=== PATIENT | female | born 1960 | race Caucasian/White ===

== ENCOUNTER 2016-03-27 15:14 | Emergency (ER) | payer MEDICARE, MEDICAID ==
[~2016-03-27 15:14] MED LIST: ASPI81TA82 PO; BACL20TA PO; CARV3.125 PO; FENT50DI TD; FLINT2; GABA300C3 PO; LASI20TA PO; MELO15TA2 PO; PERC7.5T13 PO; PLAV75TA PO; POTA-243 PO; VITA200017 PO
[2016-03-27 16:38] VITALS: BP 110/74; PULSE 94; RESP 18; TEMP 98.7; O2SAT 94
--- NOTE | 2016-03-27 16:38 | PD ---
HPI Chief Complaint: right leg pain Time Seen by Provider: 16:20 Travel History International Travel<30 days: No Contact w/Intl Traveler<30days: No Traveled to known affect area: No History of Present Illness HPI This is a 55-year-old female with history of spina bifida who primarily ambulates using a wheelchair with inability to ambulate on her own. She presents via EMS for evaluation after fall. The patient reports that 2 weeks ago her fianc was transferring her from the bedside commode to the bed when she slipped and fell, landing on her right leg. Since then she has had pain in her whole leg which she cannot localized to one area of the leg. The pain is aching and constant and worse with palpation or movement. She has been using leftover Percocet as well as Aleve, icy hot and heating pads but the pain has persisted which prompted evaluation. Denies any numbness or tingling. Denies any head or neck or back injury. Denies any chest pain or abdominal pain. She has no other complaints at this time. PFSH Past Medical History Cancer: No Cardiovascular Problems: No Diminished Hearing: No Endocrine: No Genitourinary: No Musculoskeletal: Yes (SPINA BIFIDA) Neurologic: Yes (CMT- FORM OF NEUROPATHY) Psychiatric: No Reproductive: No Respiratory: No Immunizations Current: No Past Surgical History Cardiac Surgery: No Ear Surgery: No Endocrine Surgery: No Eye Surgery: No Genitourinary Surgery: No Gynecologic Surgery: No Joint Replacement: Yes (TOTAL RIGHT HIP 2013) Oral Surgery: No Thoracic Surgery: No Other Surgery: Yes Social History Alcohol Use: Yes (OCC) Tobacco Use: Yes (1/2 PPD) Substance Use: No Allergies-Medications (Allergen,Severity, Reaction): Coded Allergies: No Known Allergies (Verified , 10/11/13) Reported Meds & Prescriptions Reported Meds & Active Scripts Active Lortab (Hydrocodone-Acetaminophen) 5-325 Mg Tab 1 Tab PO Q6H PRN Mobic (Meloxicam) 15 Mg Tab 15 Mg PO DAILY PRN Reported Vitamin D3 Super Strength (Cholecalciferol) 2,000 Unit Cap 2,000 Unit PO DAILY Flintstones Complete (Iron/Multivit/Minerals) 1 Tab Chew Lasix (Furosemide) 20 Mg Tab 20 Mg PO DAILY 30 Days Aspir-81 (Aspirin) 81 Mg Tab 81 Mg PO DAILY Coreg 3.125 mg (Carvedilol) 3.125 Mg Tab 3.125 Mg PO BID K-Dur (Potassium Chloride) 10 Meq Tabcr 10 Meq PO DAILY Plavix (Clopidogrel Bisulfate) 75 Mg Tab 75 Mg PO DAILY Lioresal 20 Mg Tab (Baclofen) 20 Mg Tab 20 Mg PO TID Fentanyl 50 Mcg/Hr patch (Fentanyl) 50 Mcg/Hr Dis 50 Mcg TD Q3D Percocet 7.5-325 mg (Oxycodone-Acetaminophen 7.5-325 mg) 1 Tab 1 Tab PO Q6H PRN FOR PAIN Vitamin D3 Super Strength (Cholecalciferol) 2,000 Unit Tab 2,000 Unit PO DAILY Gabapentin 300 Mg Cap 400 Mg PO TID Review of Systems Except as stated in HPI: all other systems reviewed are Neg Physical Exam Narrative GENERAL: Well-developed well-nourished female in no acute distress SKIN: Warm and dry. There is some bruising on the anterior right barrios. HEAD: Atraumatic. Normocephalic. EYES: Pupils equal and round. No scleral icterus. No injection or drainage. ENT: No nasal bleeding or discharge. Mucous membranes pink and moist. NECK: Trachea midline. No JVD. CARDIOVASCULAR: Regular rate and rhythm. No murmur appreciated. RESPIRATORY: No accessory muscle use. Clear to auscultation. Breath sounds equal bilaterally. GASTROINTESTINAL: Abdomen soft, non-tender, nondistended. Hepatic and splenic margins not palpable. MUSCULOSKELETAL: The patient has generalized tenderness to palpation of the right thigh, right knee, right lower leg and right foot. The compartments of the calves bilaterally are somewhat firm but there is no additional firmness or fusiform swelling of the right leg in comparison to the left. She has 2 out of 5 muscle strength in lower extremities bilaterally. The patient has pain with any passive range of motion activities utilizing the right leg. NEUROLOGICAL: Awake and alert. No obvious cranial nerve deficits. Motor grossly within normal limits. Normal speech. Data Data Last Documented VS Vital Signs Date Time Temp Pulse Resp B/P Pulse Ox O2 Delivery O2 Flow Rate FiO2 03/27/16 19:19 88 18 118/70 97 03/27/16 16:40 Room Air 03/27/16 16:38 98.7 Orders Tibia/Fibula (Ap/Lat) (03/27/16 ) Femur (Ap & Lat/2vws) (03/27/16 ) Foot, Limited (2vws) (03/27/16 ) Iv Access Insert/Monitor (03/27/16 17:09) Morphine Inj (Morphine Inj) (03/27/16 17:15) Ondansetron Inj (Zofran Inj) (03/27/16 17:15) Splint Or Brace Apply/Monitor (03/27/16 17:56) Fiberglass Long Leg Splint Ad (03/27/16 ) Acetamin-Hydrocod 325-5 Mg (Crosby 5-325 (03/27/16 21:15) MDM Medical Decision Making Medical Screen Exam Complete: Yes Emergency Medical Condition: Yes Medical Record Reviewed: Yes Differential Diagnosis Right leg fracture, contusion, strain, sprain, compartment syndrome Narrative Course 55-year-old female with history of spina bifida resents for evaluation of persistent right leg pain after a fall 2 weeks ago. On examination she has generalized tenderness to palpation of her right leg with no obvious bony deformity, she does have some bruising to the medial right lower leg. The compartments of the legs bilaterally are equal in size and equal and firmness. Plan is for right leg femur, tibia-fibula, foot x-ray imaging. X-ray imaging reveals Severe osteopenia with mildly comminuted fractures of the proximal and distal tibia and distal fibula with mild angular deformities. I discussed the injuries with the orthopedic surgeon production control specialist Dr. Martinez who would like nonoperative treatment. He recommends a long leg splint, nonweightbearing and right leg and outpatient follow-up in his office in 2 weeks. Given the patient's already limited mobilization due to her chronic medical conditions, I discussed with the briefcase sewer and I put in a [id number] to have physical therapy, occupational therapy and senior care, evaluate the patient at home. Diagnosis Primary Impression: Fracture of right tibia and fibula Qualified Code: S82.201A - Fracture of right tibia and fibula, closed, initial encounter Referrals: Sy Martinez Jr., MD Additional Instructions: Nonweightbearing right leg. Do not remove the splint. Pain medication as needed. Follow-up with orthopedic physician Dr. Martinez in 2 weeks, call his office to make an appointment. Return for any emergent medical conditions. Med/Other Pt SpecificInfo: Prescription(s) given, Orthopedic Instructions Scripts Hydrocodone-Acetaminophen (Lortab)5-325 Mg Tab1 Tab PO Q6H PRN (PAIN) #20 TAB Ref 0 Prov:Katharine Banks MD 03/27/16 Disposition: 01 DISCHARGE HOME Condition: Stable Carlito Brown Mar 27, 2016 16:38
[2016-03-27] MEDS ORDERED: ONDANSETRON HCL 4 MG/2 ML VIAL IV PUSH ONE (17:15)
[2016-03-27] MEDS ORDERED: MORPHINE SULFATE 4 MG/ML INJ IV PUSH ONE (17:15)
--- NOTE | 2016-03-27 17:15 | RADRPT ---
EXAM DATE/TIME: 03/27/2016 16:40 [facility] COMPARISON: No previous studies available for comparison. INDICATIONS : Right tibia pain, fell MEDICAL HISTORY : None. SURGICAL HISTORY : None. ENCOUNTER: Initial ACUITY: 2 weeks PAIN SCORE: 10/10 LOCATION: Right Tibia FINDINGS: The bones are severely osteopenic. There is a mildly displaced fracture of the proximal tibial shaft and the distal tibial shaft as well, extending intra-articular into the ankle joint. There is also a mildly displaced distal fibular fracture. CONCLUSION: 1. Severe osteopenia with mildly comminuted fractures of the proximal and distal tibia and distal fib dave with mild angular deformities. Fitz Melvin MD on March 27, 2016 at 17:12 Board Certified Radiologist. This report was verified electronically.
--- NOTE | 2016-03-27 17:18 | RADRPT ---
EXAM DATE/TIME: 03/27/2016 16:43 [facility] COMPARISON: No previous studies available for comparison. INDICATIONS : Right femur pain, fell MEDICAL HISTORY : None. SURGICAL HISTORY : None. ENCOUNTER: Initial ACUITY: 2 weeks PAIN SCORE: 10/10 LOCATION: Right Femur FINDINGS: Two view examination of the right femur demonstrates postoperative right hip replacement. No acute fr acture identified. Bones are osteopenic. There are femoral artery vascular calcifications noted. CONCLUSION: 1. Postoperative right hip replacement. No acute fracture identified in the right femur. Fitz Melvin MD on March 27, 2016 at 17:14 Board Certified Radiologist. This report was verified electronically.
--- NOTE | 2016-03-27 17:23 | RADRPT ---
EXAM DATE/TIME: 03/27/2016 16:52 [facility] COMPARISON: No previous studies available for comparison. INDICATIONS : Right foot pain, fell MEDICAL HISTORY : None. SURGICAL HISTORY : None. ENCOUNTER: Initial ACUITY: 2 weeks PAIN SCORE: 10/10 LOCATION: Right Foot FINDINGS: Two view examination of the right foot demonstrates severe osseous demineralization throughout. This may be secondary to disuse. Mild hallux is deformity of the first ray. Slightly comminuted and angula sabina fracture of the distal tibial metadiaphysis with a similar fracture through the distal fibula CONCLUSION: 1. Severe osseous demineralization throughout the visualized lower leg and foot. 2. Fractures of the distal tibia and fibula are only partially evaluated on the current exam. Recomme nd dedicated views of the ankle for further characterization. 3. Mild hallux valgus deformity of the first ray. Despite severe osseous demineralization, I do not s ee an obvious intrinsic fracture of the foot itself. Lambert Corral MD on March 27, 2016 at 17:19 Board Certified Radiologist. This report was verified electronically.
--- NOTE | 2016-03-27 18:11 | HHI.FF ---
Face to Face Verification Diagnosis: (1) Fracture of right tibia and fibula Physical Therapy Order: Evaluate and Treat, Improve ambulation, Strength and gait training Occupational Therapy Order: Improve ADL Home Health Nursing Order: Medical education I have seen patient Yandy Reed on 03/27/16. My clinical findings support the need for the requested home health care services because: This is a 55-year-old female who is primarily wheelchair bound with a history of spina bifida, severe weakness in lower extremities. She has sustained significant fracturing to the right tibia fibula which are nonoperative but require immobilization for a significant amount of time. Ltd mobility - disease progression Limited ability to care for self High risk of falls I certify that my clinical findings support that this patient is homebound because: This is a wheelchair-bound patient who sustained fractures to the right tibia and fibula which will require immobilization for a significant amount of time. Unsteady gait/balance Unsafe to leave home unassisted Carlito Brown Mar 27, 2016 18:11
[2016-03-27] MEDS ORDERED: HYDR-3533 PO (18:13)
[2016-03-27 19:19] VITALS: BP 118/70
[2016-03-27] MEDS ORDERED: ACETAMINOPHEN/HYDROcodone 325 MG/5 MG TAB PO ONE (21:15)
[2016-03-29] MEDS ORDERED: BACL20TA PO (14:16)
[2016-03-29] MEDS ORDERED: CARV3.12 PO (14:16)
[2016-03-29] MEDS ORDERED: CLOP75TA PO (14:16)
[2016-03-29] MEDS ORDERED: POTA10CA PO (14:16)
[2016-03-29] MEDS ORDERED: ASPI81CH CHEW (14:16)
[2016-03-29] MEDS ORDERED: PRAV10TA PO (14:16)
[2016-03-29] MEDS ORDERED: RANI300T PO (14:16)
[2016-03-29] MEDS ORDERED: OXYC1TAB36 PO (14:16)
== END 2016-03-28 01:33 | disposition home or self-care (01) ==
LOC: NEDAMB 15:14 → NEPB 03-28 01:33
DX: S82.101A Unspecified fracture of upper end of right tibia, initial encounter for closed fracture (principal); S82.301A Unspecified fracture of lower end of right tibia, initial encounter for closed fracture; S82.401A Unspecified fracture of shaft of right fibula, initial encounter for closed fracture; M85.80 Other specified disorders of bone density and structure, unspecified site; F17.210 Nicotine dependence, cigarettes, uncomplicated; Q05.9 Spina bifida, unspecified; W01.0XXA Fall on same level from slipping, tripping and stumbling without subsequent striking against object, initial encounter; Y92.002 Bathroom of unspecified non-institutional (private) residence as the place of occurrence of the external cause; Z99.3 Dependence on wheelchair
CPT/HCPCS: 29505; 73552; 73590; 73620; 96374; 96375; 99284; J2270; J2405

== ENCOUNTER 2016-03-29 13:58 | Inpatient (IN) | payer MEDICARE, MEDICAID ==
[2016-03-29] VITALS (7 sets, daily range): BP systolic 101–144; BP diastolic 58–84; PULSE 84–130; RESP 18–22; TEMP 97.3–98.4; O2SAT 93–97
[~2016-03-29] VITALS: Ht 157.5 cm; Wt 72.0 kg
[~2016-03-29 13:58] MED LIST changes: +HYDR-3533 PO
[2016-03-29] MEDS ORDERED: POTA10CA PO (14:16)
[2016-03-29] MEDS ORDERED: RANI300T PO (14:16)
[2016-03-29] MEDS ORDERED: BACL20TA PO (14:16)
[2016-03-29] MEDS ORDERED: PRAV10TA PO (14:16)
[2016-03-29] MEDS ORDERED: CLOP75TA PO (14:16)
[2016-03-29] MEDS ORDERED: CARV3.12 PO (14:16)
[2016-03-29] MEDS ORDERED: OXYC1TAB36 PO (14:16)
[2016-03-29] MEDS ORDERED: ASPI81CH CHEW (14:16)
[2016-03-29] MEDS ORDERED: ONDANSETRON HCL 4 MG/2 ML VIAL ONE (14:23)
[2016-03-29] MEDS ORDERED: MORPHINE SULFATE 4 MG/ML INJ IV PUSH ONE (14:45)
[2016-03-29] MEDS ORDERED: ONDANSETRON HCL 4 MG/2 ML VIAL IVP ONE (14:45)
[2016-03-29] MEDS ORDERED: SODIUM CHLORID 0.9% 500 ML INJ 500 ML IV ONE ×2 (14:45→17:00)
--- NOTE | 2016-03-29 14:45 | PD ---
HPI Chief Complaint: Pain: Acute or Chronic Time Seen by Provider: 14:30 Travel History International Travel<30 days: No Contact w/Intl Traveler<30days: No Traveled to known affect area: No History of Present Illness HPI Patient is a 55-year-old female with history of spina bifida, chronic bilateral lower extremity weakness and neuropathy who is wheelchair bound presenting with chief complaint "I can't care for myself". This is secondary to a right proximal and distal tibia and distal fibula fracture. She was seen here for the fracture 2 days prior. Orthopedist was consult at stated this was not operative, patient was placed in a splint. She has not been able to achieve analgesia with home Percocet and hydrocodone and states that she is only able to transfer with her boyfriend by hanging onto his neck to transfer to the toilet and shower. Due to the pain she has not been able to do this. She states that all day yesterday she laid in bed and urinated on herself. Stay home health came out and per the patient told her that she needed to be placed in the 24-hour care. Patient states that she has been limiting her fluids and has nausea and abdominal distention. Last bowel movement was approximately one week ago. She has been passing gas but has not done so yet today. She denies chest pain or shortness of breath or pedal edema. She denies fever and chills. PFSH Past Medical History Cancer: No Cardiovascular Problems: Yes (OK ) Diminished Hearing: No Endocrine: No Gastrointestinal Disorders: No Genitourinary: No Implanted Vascular Access Dvce: No Musculoskeletal: Yes (SPINA BIFIDA) Neurologic: Yes (CMT- FORM OF NEUROPATHY) Psychiatric: No Reproductive: No Respiratory: No Immunizations Current: No Influenza Vaccination: Yes Past Surgical History Cardiac Surgery: No Ear Surgery: No Endocrine Surgery: No Eye Surgery: No Genitourinary Surgery: No Gynecologic Surgery: No Joint Replacement: Yes (TOTAL RIGHT HIP 2013) Oral Surgery: No Thoracic Surgery: No Other Surgery: Yes Social History Alcohol Use: Yes (OCC) Tobacco Use: Yes (1 PPD) Substance Use: No Allergies-Medications (Allergen,Severity, Reaction): Coded Allergies: No Known Allergies (Verified , 03/29/16) Reported Meds & Prescriptions Reported Meds & Active Scripts Active Reported Ranitidine (Ranitidine HCl) 300 Mg Tab 300 Mg PO DAILY Aspirin 81 Mg Chew 81 Mg CHEW DAILY Potassium Chloride ER (Potassium Chloride) 10 Meq Cap 10 Meq PO DAILY Baclofen 20 Mg Tab 20 Mg PO TID Carvedilol 3.125 Mg Tab 3.125 Mg PO BID Oxycodone-Acetaminophen 10-325 mg Tab 1 Tab PO Q6H PRN Clopidogrel (Clopidogrel Bisulfate) 75 Mg Tab 75 Mg PO DAILY Pravastatin 10 Mg Tab 10 Mg PO DAILY Review of Systems Except as stated in HPI: all other systems reviewed are Neg Physical Exam Narrative GENERAL: Well-developed and well-nourished adult female in no acute distress. SKIN: Patient has candidal skin changes in the bilateral breasts and in groin slight amount of clear to white odiferous discharge. No signs of cellulitis or abscess. There is some reddened skin over the sacrum with small break in the epidermis the left without signs of cellulitis or abscess. Warm and dry. Slightly decreased turgor without tenting. HEAD: Normocephalic and atraumatic. EYES: PERRL bilaterally, 5mm. EOMI bilaterally. No injection or icterus present. No proptosis. Lids without edema or erythema. ENT:Buccal mucosa pink and slightly dry. Oropharynx free of erythema, tonsillar hypertrophy, masses, swelling, asymmetry and exudates. Uvula midline and airway patent. NECK: Supple, no midline tenderness, crepitus or step-offs. Trachea midline, no JVD. No cervical or facial lymphadenopathy. CARDIOVASCULAR: Tachycardic, rate of 104, with regular rhythm without murmurs, rubs, clicks or gallops. Left dorsalis pedis pulse 2+. Capillary refill of all toes of the right lower extremity is less than 2 seconds. Trace pedal edema of the left lower extremity per patient which is chronic, negative Homans sign. RESPIRATORY: Coarse breath sounds diffusely without wheezing, rhonchi or rales. No distress or use of accessory muscles. GASTROINTESTINAL: Distended and firm, non-tender without rebound or guarding. Hypoactive bowel sounds all 4 quadrants. No masses or organomegaly present. MUSCULOSKELETAL: Right lower extremity is in a posterior long-leg splint. Extremities without clubbing or cyanosis. No obvious deformities. NEUROLOGIC: CN II-XII grossly intact. Awake and alert. Motor grossly within normal limits. Sensation intact to the distal tip of all toes of right foot. Normal speech. PSYCHIATRIC: Appropriate mood and affect; insight and judgment normal. Data Data Last Documented VS Vital Signs Date Time Temp Pulse Resp B/P Pulse Ox O2 Delivery O2 Flow Rate FiO2 03/29/16 16:25 104 20 135/75 94 Room Air 03/29/16 14:05 98.4 Orders Ondansetron Inj (Zofran Inj) (03/29/16 14:23) Complete Blood Count With Diff (03/29/16 14:33) Comprehensive Metabolic Panel (03/29/16 14:33) Lipase (03/29/16 14:33) Lactic Acid (03/29/16 14:33) Prothrombin Time / Inr (Pt) (03/29/16 14:33) Act Partial Throm Time (Ptt) (03/29/16 14:33) Urinalysis - C+S If Indicated (03/29/16 14:33) Ct Abd/Pel W Iv Contrast(Rout) (03/29/16 14:33) Iv Access Insert/Monitor (03/29/16 14:33) Ecg Monitoring (03/29/16 14:33) Oximetry (03/29/16 14:33) Ondansetron Inj (Zofran Inj) (03/29/16 14:45) Electrocardiogram (03/29/16 14:33) Chest, Single Ap (03/29/16 14:33) Ckmb (Isoenzyme) Profile (03/29/16 14:33) Troponin I (03/29/16 14:33) Sodium Chlorid 0.9% 500 Ml Inj (Ns 500 M (03/29/16 14:45) Morphine Inj (Morphine Inj) (03/29/16 14:45) Morphine Inj (Morphine Inj) (03/29/16 15:45) Urine Culture (03/29/16 15:43) ^ Skin Protective Barrier (03/29/16 16:13) Ceftriaxone Inj (Rocephin Inj) (03/29/16 16:30) Nystatin Oint (Mycostatin Oint) (03/29/16 16:30) Sodium Chlorid 0.9% 500 Ml Inj (Ns 500 M (03/29/16 17:00) Albuterol-Ipratropium Neb (Duoneb Neb) (03/29/16 17:00) Iohexol 350 Inj (Omnipaque 350 Inj) (03/29/16 16:50) Urinary Catheter Management SHARITA.Q8H (03/29/16 17:21) Piperacil-Tazo 4.5 Gm Premix (Zosyn 4.5 (03/29/16 17:30) Vancomycin Inj (Vancomycin Inj) (03/29/16 17:30) Sodium Chlor 0.9% 1000 Ml Inj (Ns 1000 M (03/29/16 17:30) Sodium Chlor 0.9% 1000 Ml Inj (Ns 1000 M (03/29/16 17:30) Vital Signs (Adult) Q4H (03/29/16 17:40) Neuro Checks Q4H (03/29/16 17:40) Activity Bed Rest With Brp (03/29/16 17:40) Diet Heart Healthy (03/29/16 Dinner) Sodium Chlor 0.9% 1000 Ml Inj (Ns 1000 M (03/29/16 17:40) Sodium Chloride 0.9% Flush (Ns Flush) (03/29/16 17:45) Sodium Chloride 0.9% Flush (Ns Flush) (03/29/16 21:00) Acetaminophen (Tylenol) (03/29/16 17:45) Ondansetron Inj (Zofran Inj) (03/29/16 17:45) Basic Metabolic Panel (Bmp) (03/30/16 06:00) Complete Blood Count With Diff (03/30/16 06:00) Pt Request For Service (03/29/16 17:40) Naloxone Inj (Narcan Inj) (03/29/16 17:45) Heparin Inj (Heparin Inj) (03/29/16 21:00) Piperacil-Tazo 3.375 Gm Premix (Zosyn 3. (03/30/16 00:00) Lactic Acid (03/30/16 06:00) Admit Order (Ed Use Only) (03/29/16 17:52) Labs Laboratory Tests Test 03/29/16 03/29/16 15:23 15:43 White Blood Count 10.8 TH/MM3 Red Blood Count 3.85 MIL/MM3 Hemoglobin 13.5 GM/DL Hematocrit 39.6 % Mean Corpuscular Volume 102.9 FL Mean Corpuscular Hemoglobin 35.2 PG Mean Corpuscular Hemoglobin 34.2 % Concent Red Cell Distribution Width 15.7 % Platelet Count 255 TH/MM3 Mean Platelet Volume 7.5 FL Neutrophils (%) (Auto) 74.5 % Lymphocytes (%) (Auto) 16.3 % Monocytes (%) (Auto) 8.4 % Eosinophils (%) (Auto) 0.4 % Basophils (%) (Auto) 0.4 % Neutrophils # (Auto) 8.1 TH/MM3 Lymphocytes # (Auto) 1.8 TH/MM3 Monocytes # (Auto) 0.9 TH/MM3 Eosinophils # (Auto) 0.0 TH/MM3 Basophils # (Auto) 0.0 TH/MM3 CBC Comment DIFF FINAL Differential Comment Prothrombin Time 12.2 SEC Prothromb Time International 1.1 RATIO Ratio Activated Partial 26.0 SEC Thromboplast Time Sodium Level 132 MEQ/L Potassium Level 4.1 MEQ/L Chloride Level 94 MEQ/L Carbon Dioxide Level 26.3 MEQ/L Anion Gap 12 MEQ/L Blood Urea Nitrogen 3 MG/DL Creatinine 0.40 MG/DL Estimat Glomerular Filtration 165 ML/MIN Rate Random Glucose 94 MG/DL Lactic Acid Level 3.2 mmol/L Calcium Level 8.2 MG/DL Total Bilirubin 0.9 MG/DL Aspartate Amino Transf 94 U/L (AST/SGOT) Alanine Aminotransferase 45 U/L (ALT/SGPT) Alkaline Phosphatase 163 U/L Total Creatine Kinase 23 U/L Troponin I LESS THAN 0.02 NG/ML Total Protein 6.6 GM/DL Albumin 3.1 GM/DL Lipase 104 U/L Urine Color YELLOW Urine Turbidity CLOUDY Urine pH 6.5 Urine Specific Moore 1.012 Urine Protein 30 mg/dL Urine Glucose (UA) NEG mg/dL Urine Ketones NEG mg/dL Urine Occult Blood MOD Urine Nitrite NEG Urine Bilirubin NEG Urine Urobilinogen 2.0 MG/DL Urine Leukocyte Esterase LARGE Urine RBC 3 /hpf Urine WBC 126 /hpf Urine WBC Clumps FEW Urine Squamous Epithelial 2 /hpf Cells Urine Amorphous Sediment RARE Urine Bacteria MANY /hpf Urine Mucus FEW /lpf Microscopic Urinalysis Comment CULTURE INDICATED MDM Medical Decision Making Medical Screen Exam Complete: Yes Emergency Medical Condition: Yes Interpretation(s) Last 24 hours Impressions Chest X-Ray 03/29/16 3633 Signed Impressions: Service Date/Time: Tuesday, March 29, 2016 14:40 - CONCLUSION: No evidence of acute cardiopulmonary disease. Dexter Worley MD Abdomen/Pelvis CT 03/29/16 1433 Signed Impressions: Service Date/Time: Tuesday, March 29, 2016 16:49 - CONCLUSION: 1. 12.5 cm uterus characteristic of a fibroid uterus with some entrapped endometrial fluid. 2. Diffuse fatty infiltration of the liver. 3. Otherwise no acute findings within the abdomen or pelvis. Mild anasarca. Previous right hip replacement. Coronary calcifications. Fitz Melvin MD Laboratory Tests Test 03/29/16 03/29/16 15:23 15:43 White Blood Count 10.8 TH/MM3 (4.0-11.0) Red Blood Count 3.85 MIL/MM3 (4.00-5.30) Hemoglobin 13.5 GM/DL (11.6-15.3) Hematocrit 39.6 % (35.0-46.0) Mean Corpuscular Volume 102.9 FL (80.0-100.0) Mean Corpuscular Hemoglobin 35.2 PG (27.0-34.0) Mean Corpuscular Hemoglobin 34.2 % Concent (32.0-36.0) Red Cell Distribution Width 15.7 % (11.6-17.2) Platelet Count 255 TH/MM3 (150-450) Mean Platelet Volume 7.5 FL (7.0-11.0) Neutrophils (%) (Auto) 74.5 % (16.0-70.0) Lymphocytes (%) (Auto) 16.3 % (9.0-44.0) Monocytes (%) (Auto) 8.4 % (0.0-8.0) Eosinophils (%) (Auto) 0.4 % (0.0-4.0) Basophils (%) (Auto) 0.4 % (0.0-2.0) Neutrophils # (Auto) 8.1 TH/MM3 (1.8-7.7) Lymphocytes # (Auto) 1.8 TH/MM3 (1.0-4.8) Monocytes # (Auto) 0.9 TH/MM3 (0-0.9) Eosinophils # (Auto) 0.0 TH/MM3 (0-0.4) Basophils # (Auto) 0.0 TH/MM3 (0-0.2) CBC Comment DIFF FINAL Differential Comment Prothrombin Time 12.2 SEC (9.8-11.6) Prothromb Time International 1.1 RATIO Ratio Activated Partial 26.0 SEC Thromboplast Time (24.3-30.1) Sodium Level 132 MEQ/L (136-145) Potassium Level 4.1 MEQ/L (3.5-5.1) Chloride Level 94 MEQ/L (98-107) Carbon Dioxide Level 26.3 MEQ/L (21.0-32.0) Anion Gap 12 MEQ/L (5-15) Blood Urea Nitrogen 3 MG/DL (7-18) Creatinine 0.40 MG/DL (0.50-1.00) Estimat Glomerular Filtration 165 ML/MIN Rate (>89) Random Glucose 94 MG/DL (74-106) Lactic Acid Level 3.2 mmol/L (0.4-2.0) Calcium Level 8.2 MG/DL (8.5-10.1) Total Bilirubin 0.9 MG/DL (0.2-1.0) Aspartate Amino Transf 94 U/L (15-37) (AST/SGOT) Alanine Aminotransferase 45 U/L (10-53) (ALT/SGPT) Alkaline Phosphatase 163 U/L (45-117) Total Creatine Kinase 23 U/L (26-192) Troponin I LESS THAN 0.02 NG/ML (0.02-0.05) Total Protein 6.6 GM/DL (6.4-8.2) Albumin 3.1 GM/DL (3.4-5.0) Lipase 104 U/L (73-393) Urine Color YELLOW (YELLW/STRAW) Urine Turbidity CLOUDY (CLEAR) Urine pH 6.5 (5.0-8.5) Urine Specific Moore 1.012 (1.002-1.035) Urine Protein 30 mg/dL (NEG-TRACE) Urine Glucose (UA) NEG mg/dL (NEG) Urine Ketones NEG mg/dL (NEG) Urine Occult Blood MOD (NEG) Urine Nitrite NEG (NEG) Urine Bilirubin NEG (NEG) Urine Urobilinogen 2.0 MG/DL (LESS THAN 2.0) Urine Leukocyte Esterase LARGE (NEG) Urine RBC 3 /hpf (0-3) Urine WBC 126 /hpf (0-5) Urine WBC Clumps FEW (NONE) Urine Squamous Epithelial 2 /hpf (0-5) Cells Urine Amorphous Sediment RARE Urine Bacteria MANY /hpf (NONE) Urine Mucus FEW /lpf (OCC) Microscopic Urinalysis Comment CULTURE INDICATED Differential Diagnosis Dehydration versus electrolyte disturbance versus acute kidney injury versus bowel obstruction versus pancreatitis versus intractable pain Narrative Course Patient is a 55-year-old female with history of spina bifida who has chronic lower extremity weakness and neuropathy presenting with chief complaint of not being able to care for herself after suffering a significant right tibia and fibula fracture 2 days prior. This was nonsurgical or orthopedist at that time the patient was placed in a splint. She is unable to care for herself and states she has been lying in her bed urinating on herself and not eating or drinking. Home health aide came to the house today and told the patient she needed to come to the ED because she cannot care for her. The patient has some nausea and abdominal distention but denies any other symptoms. She is afebrile with mild tachycardia. He is dehydrated. Given 1 L normal saline bolus. Urinalysis was a catheter specimen shows 126 wbc's with a few clumps, many bacteria, 3 rbc's and leukocyte esterase. Patient was given ceftriaxone 1 g. CBC shows a CBC 10.8 with a neutrophilia without bands. Metabolic panel shows sodium 132, BUN 3, creatinine 0.4, lipase 104, CK 23, troponin less than 0.02, albumin 3.1, calcium 8.2, AST 94, ALT 45, ALP 163. Lactic acid 3.2. Given that the patient has a UTI with borderline elevated WBCs with a neutrophilia, significant lactic acid elevation and is tachycardic to meet sepsis criteria. She was given vancomycin and Zosyn in addition an additional liter of saline was ordered. CT scan had been ordered and was pending which shows a large uterine fibroid with retaining fluid which is chronic per patient. Significant bladder distention, Gonzales was placed. Generalized anasarca was also present. Additionally patient had early pressure ulcer on the sacrum, protective dressing was applied. Evidence of intertriginous candidiasis as well, nystatin applied. Dr. Banks spoke to the admitting physician who accepted the admission. Diagnosis Primary Impression: Sepsis Qualified Code: A41.9 - Sepsis, due to unspecified organism Additional Impressions: UTI (urinary tract infection) Qualified Code: N30.00 - Acute cystitis without hematuria Fracture of right tibia and fibula Qualified Code: S82.201D - Fracture of right tibia and fibula, closed, with routine healing, subsequent encounter Pressure ulcer Qualified Code: L89.151 - Decubitus ulcer of sacral region, stage 1 Intertriginous candidiasis Admitting Information Admitting Physician Requests: Admit Condition: Stable Dexter Silva III Mar 29, 2016 14:45
--- NOTE | 2016-03-29 15:08 | RADRPT ---
EXAM DATE/TIME: 03/29/2016 14:40 [facility] COMPARISON: CHEST SINGLE AP, December 10, 2012, 16:51. INDICATIONS : Nausea, Evaluate for Free Air. MEDICAL HISTORY : Myocardial infarction. Spina Bifida. SURGICAL HISTORY : Hip Replacement, Right. ENCOUNTER: Initial ACUITY: 1 day PAIN SCORE: 0/10 LOCATION: Bilateral chest FINDINGS: A single view of the chest demonstrates the lungs to be symmetrically aerated without evidence of mas s, infiltrate or effusion. The cardiomediastinal contours are unremarkable. Osseous structures are intact. CONCLUSION: No evidence of acute cardiopulmonary disease. Dexter Worley MD on March 29, 2016 at 15:07 Board Certified Radiologist. This report was verified electronically.
[2016-03-29] MEDS ORDERED: MORPHINE SULFATE 4 MG/ML INJ IV ONE (15:45)
[2016-03-29 15:53] LABS: AUTOMATED NEUTROPHIL # 8.1 TH/MM3 (1.8-7.7); BASOPHIL % 0.4 % (0.0-2.0); EOSINOPHIL % 0.4 % (0.0-4.0); HEMATOCRIT 39.6 % (35.0-46.0); HEMO FLAGS DIFF FINAL; LYMPH % 16.3 % (9.0-44.0); LYMPHOCYTE # 1.8 TH/MM3 (1.0-4.8); MEAN CELL VOLUME 102.9 FL (80.0-100.0); MEAN CORPUSCULAR HEMOGLOBIN 35.2 PG (27.0-34.0); MEAN CORPUSCULAR HGB CONC 34.2 % (32.0-36.0); MONO % 8.4 % (0.0-8.0); NEUT % 74.5 % (16.0-70.0); PLATELET COUNT 255 TH/MM3 (150-450); RED BLOOD COUNT 3.85 MIL/MM3 (4.00-5.30); RED CELL DISTRIBUTION WIDTH 15.7 % (11.6-17.2); WHITE BLOOD COUNT 10.8 TH/MM3 (4.0-11.0)
[2016-03-29 16:01] LABS: INTERNATIONAL NORMALIZED RATIO 1.1 RATIO; PROTHROMBIN TIME - PATIENT 12.2 SEC (9.8-11.6)
[2016-03-29 16:08] LABS: BACTERIA, URINE MANY /hpf; BLOOD, URINE MOD (NEG); COMMENT (UR) CULTURE INDICATED; CULTURE IF INDICATED CULTURE INDICATED; GLUCOSE,URINE NEG (NEG); KETONE, URINE NEG (NEG); MUCUS URINE FEW /lpf (OCC); NITRITE,URINE NEG (NEG); PH, URINE 6.5 (5.0-8.5); SQUAMOUS EPITHELIAL CELL URINE 2 /hpf (0-5); URINE COLOR YELLOW (YELLW/STRAW)
[2016-03-29 16:09] LABS: ALT (GPT) 45 U/L (10-53); ANION GAP 12 MEQ/L (5-15); AST (GOT) 94 U/L (15-37); BICARBONATE 26.3 MEQ/L (21.0-32.0); BLOOD UREA NITROGEN 3 MG/DL (7-18); CHLORIDE 94 MEQ/L (98-107); GLOMERULAR FILTRATION RATE 165 ML/MIN (>89); POTASSIUM 4.1 MEQ/L (3.5-5.1); SODIUM (NA) 132 MEQ/L (136-145)
[2016-03-29 16:12] LABS: ALKALINE PHOSPHATASE 163 U/L (45-117); TOTAL BILIRUBIN ADULT 0.9 MG/DL (0.2-1.0)
[2016-03-29 16:15] LABS: CREATINE KINASE 23 U/L (26-192)
[2016-03-29] MEDS ORDERED: cefTRIAXone INJ 1,000 MG in SODIUM CHLORIDE 0.9% INJ 100 ML IV ONE (16:30)
[2016-03-29] MEDS ORDERED: NYSTATIN 100,000 U/GM OINT 15 GM TUBE TOPICAL ONE (16:30)
[2016-03-29] MEDS ORDERED: IOHEXOL 350 MG/ML 10 ML VIAL (for RAD DIAG) IV ONE (16:50)
[2016-03-29] MEDS: RESP: ALBUTEROL 2.5 MG/IPRATROPIUM 0.5 MG NEB (SCH) INH ×2 (17:15→17:25)
--- NOTE | 2016-03-29 17:16 | RADRPT ---
EXAM DATE/TIME: 03/29/2016 16:49 [facility] COMPARISON: No previous studies available for comparison. INDICATIONS : Abdomen pain and distension. IV CONTRAST: 97 cc Omnipaque 350 (iohexol) IV ORAL CONTRAST: No oral contrast ingested. RADIATION DOSE: 14.80 CTDIvol (mGy) MEDICAL HISTORY : Cardiovascular disease. Spina bifida. SURGICAL HISTORY : Back, right hip. ENCOUNTER: Initial ACUITY: 1 day PAIN SCALE: 5/10 LOCATION: Bilateral abdomen. TECHNIQUE: Volumetric scanning of the abdomen and pelvis was performed. Using automated exposure control and ad justment of the mA and/or kV according to patient size, radiation dose was kept as low as reasonably achievable to obtain optimal diagnostic quality images. FINDINGS: The lung bases are clear. There is extensive fatty infiltration of the liver. Spleen, adrenals, kidne ys and pancreas demonstrate no acute findings. No calcified gallstones or biliary ductal dilatation. Bladder is distended. Uterus is enlarged to 12.5 cm in diameter with some loculated fluid in the endo metrial cavity. Uterine size is similar to 2013 exam and most characteristic of fibroids. There is pr evious right hip replacement. Bones osteopenic. No acute bony abnormalities. CONCLUSION: 1. 12.5 cm uterus characteristic of a fibroid uterus with some entrapped endometrial fluid. 2. Diffuse fatty infiltration of the liver. 3. Otherwise no acute findings within the abdomen or pelvis. Mild anasarca. Previous right hip replac ement. Coronary calcifications. Fitz Melvin MD on March 29, 2016 at 17:10 Board Certified Radiologist. This report was verified electronically.
[2016-03-29] MEDS ORDERED: SODIUM CHLOR 0.9% 1000 ML INJ 1,000 ML IV ONE ×2 (17:30)
[2016-03-29] MEDS ORDERED: VANCOMYCIN INJ 1,000 MG in SODIUM CHLOR 0.9% 250 ML INJ 250 ML IV ONE (17:30)
[2016-03-29] MEDS ORDERED: PIPERACIL-TAZO 4.5 GM PREMIX 100 ML IV ONE (17:30)
[2016-03-29] MEDS ORDERED: ACETAMINOPHEN 325 MG TAB PO PRN (17:45)
[2016-03-29] MEDS ORDERED: SODIUM CHLORIDE 0.9% FLUSH 5 ML FLUSH FLUSH PRN (17:45)
[2016-03-29] MEDS ORDERED: ONDANSETRON HCL 4 MG/2 ML VIAL IVP PRN (17:45)
[2016-03-29] MEDS ORDERED: NALOXONE HCL 0.4 MG/ML AMP IV PRN (17:45)
--- NOTE | 2016-03-29 17:51 | HHI.HP ---
HPI Service [facility] Primary Care Physician Unknown Admission Diagnosis Diagnoses: Chief Complaint: Pain, unable to care for herself (Nikki Ramires) Travel History International Travel<30 Days: No Contact w/Intl Traveler <30 Da: No Traveled to Known Affected Are: No (Nikki Ramires) History of Present Illness This is an unfortunate 55-year-old female with history of spina bifida who is wheelchair-bound, previous fall with hip repair, CMT, neuropathy. According to the patient approximately 1 month ago she fell while she was been held transferring from her wheelchair. She didn't present to the hospital until 2 days ago on March 27. She was found with a right proximal distal tibia and fibula fracture. Orthopedic surgeon was called from the emergency room and indicated that this was a nonoperative fracture and was placed in a splint and instructed to follow up as outpatient. She was discharge home from the emergency room with home health care and Percocet. According to the patient, she is only able to transfer by hanging onto her boyfriend's neck to the toilet in the shower. She has been in extreme pain has not been able to be moved around. Home healthcare showed up today she was found laying in urine. Patient states that she hasn't been eating very much. Her boyfriend has some type of visual impairment and not one point she was actually taking care of him. Indicates she hasn't had a bowel movement in approximately one week. She' s been passing gas, feels her abdomen is distended. Denies any fever, no chills. Patient was evaluated in the emergency room, was noted tachycardic, pulse rate 112, temperature 98.4, blood pressure 137/84, sats 94%. No WBC elevation. BMP was essentially unremarkable other than mild hyponatremia. Alkaline phosphatase was elevated 163. Lactic acid was 3.2. Was noted with UTI , positive for large leukocyte esterase, WBC, bacteria. 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 Chest x-ray with no acute findings. Cultures were obtained, she was fluid resuscitated. Empiric antibiotics were started. She was given narcotics. At this time she is complaining of increasing pain and having spasms. She is very anxious, very tearful about being rehospitalized. Indicates that she cannot take care of herself and is agreeable with going to rehabilitation facility. Patient is admitted for further evaluation and treatment (Nikki Ramires) Review of Systems Constitutional: DENIES: Diaphoretic episodes, Fatigue, Fever, Weight gain, Weight loss, Chills, Dizziness, Change in appetite, Night Sweats Endocrine: DENIES: Abnorml menstrual pattern, Heat/cold intolerance, Polydipsia , Polyuria, Polyphagia Eyes: DENIES: Blurred vision, Diplopia, Eye inflammation, Eye pain, Vision loss , Photosensitivity, Double Vision Ears, nose, mouth, throat: DENIES: Tinnitus, Hearing loss, Vertigo, Nasal discharge, Oral lesions, Throat pain, Hoarseness, Ear Pain, Running Nose, Epistaxis, Sinus Pain, Toothache, Odynophagia Respiratory: DENIES: Apneas, Cough, Snoring, Wheezing, Hemoptysis, Sputum production, Shortness of breath Cardiovascular: DENIES: Chest pain, Palpitations, Syncope, Dyspnea on Exertion , PND, Lower Extremity Edema, Orthopnea, Claudication Gastrointestinal: DENIES: Abdominal pain, Black stools, Bloody stools, Constipation, Diarrhea, Nausea, Vomiting, Difficulty Swallowing, Anorexia Genitourinary: DENIES: Abnormal vaginal bleeding, Dysmenorrhea, Dyspareunia, Sexual dysfunction, Urinary frequency, Urinary incontinence, Urgency, Hematuria , Dysuria, Nocturia, Vaginal discharge Musculoskeletal: COMPLAINS OF: Joint pain, Muscle aches (spasms), DENIES: Stiffness, Joint Swelling, Back pain, Neck pain Integumentary: DENIES: Abnormal pigmentation, Pruritus, Rash, Nail changes, Breast masses, Breast skin changes, Nipple discharge Hematologic/lymphatic: DENIES: Bruising, Lymphadenopathy Neurologic: DENIES: Abnormal gait, Headache, Localized weakness, Paresthesias, Seizures, Speech Problems, Tremor, Poor Balance Psychiatric: DENIES: Anxiety, Confusion, Mood changes, Depression, Hallucinations, Agitation, Suicidal Ideation, Homicidal Ideation, Delusions ( Nikki Ramires) Past Family Social History Past Medical History 1. Status post fall 11/02/2012 with re-injury to a previous hip replacement. 2. Spina bifida with multiple surgeries as a child and as an adolescent. 3. Peptic ulcer disease in 1981. 4. Charcot-Julia disease. 5. Macrocytosis. 6. CMT neuropathy. 7. Deep venous thrombosis to right lower extremity. Past Surgical History 1. Spina bifida surgery. 2. Right hip pinning in July of 2012 from a fall. 3. Re-do right hip surgery 08/17/2012 with total hip replacement. Reported Medications Reported Meds & Active Scripts Active Reported Ranitidine (Ranitidine HCl) 300 Mg Tab 300 Mg PO DAILY Aspirin 81 Mg Chew 81 Mg CHEW DAILY Potassium Chloride ER (Potassium Chloride) 10 Meq Cap 10 Meq PO DAILY Baclofen 20 Mg Tab 20 Mg PO TID Carvedilol 3.125 Mg Tab 3.125 Mg PO BID Oxycodone-Acetaminophen 10-325 mg Tab 1 Tab PO Q6H PRN Clopidogrel (Clopidogrel Bisulfate) 75 Mg Tab 75 Mg PO DAILY Pravastatin 10 Mg Tab 10 Mg PO DAILY (Nikki Ramires) Allergies: Coded Allergies: No Known Allergies (Verified , 03/29/16) Active Ordered Medications Inpatient Medications Acetaminophen (Tylenol) 650 mg Q4H PRN PO TEMP > 100.4; Start 03/29/16 at 17:45 Albuterol/ Ipratropium 1 ampule 1 ampule Q15M INH Last administered on 17:15; Start 03/29/16 at 17:00; Stop 03/29/16 at 17:16; Status DC Ceftriaxone Sodium/Sodium Chloride (Rocephin Inj/NS Inj) 100 ml @ 200 mls/hr ONCE ONCE IV Last administered on 03/29/16 16:42; Start 03/29/16 at 16:30; Stop 03/29/16 at 16:59; Status DC Heparin Sodium (Porcine) (Heparin Inj) 5,000 units Q12HR SQ ; Start 03/29/16 at 21:00 IV Flush (NS Flush) 2 ml BID FLUSH ; Start 03/29/16 at 21:00; Status UNV Morphine Sulfate (Morphine Inj) 3 mg ONCE ONCE IV PUSH Last administered on 15:41; Start 03/29/16 at 14:45; Stop 03/29/16 at 14:46; Status DC Morphine Sulfate 4 mg 4 mg ONCE ONCE IV Last administered on 03/29/16 16:42; Start 03/29/16 at 15:45; Stop 03/29/16 at 15:46; Status DC Naloxone HCl (Narcan Inj) 0.4 mg UNSCH PRN IV SEE LABEL COMMENTS; Start at 17:45 Nystatin 1 applic 1 applic ONCE ONCE TOPICAL Last administered on 03/29/16t 17 :12; Start 03/29/16 at 16:30; Stop 03/29/16 at 16:31; Status DC Ondansetron HCl (Zofran Inj) 4 mg Q6H PRN IVP NAUSEA OR VOMITING; Start at 17:45 Piperacillin Sod/ Tazobactam Sod 100 ml @ 200 mls/hr ONCE ONCE IV ; Start at 17:30; Stop 03/29/16 at 17:59 Sodium Chloride (NS 1000 ml Inj) 1,000 ml @ 100 mls/hr Q10H IV ; Start at 17:40 Sodium Chloride (NS 500 ml Inj) 500 ml @ 500 mls/hr BOLUS ONCE IV Last administered on 03/29/16t 17:13; Start 03/29/16 at 17:00; Stop 03/29/16 at 17:59 Vancomycin HCl 1000 mg/Sodium Chloride 250 ml @ 250 mls/hr ONCE ONCE IV ; Start 03/29/16 at 17:30; Stop 03/29/16 at 18:29 Family History CMT neuropathy in her father, he's alive and well, mother has heart disease and she is alive and well. Social History She is a , she has a fiance. States that her two children are . She smokes about a pack a day since age 16. She has occasional alcohol use. Wheelchair bound for the last 3 years. (Nikki Ramires) Physical Exam Vital Signs Vital Signs Date Time Temp Pulse Resp B/P Pulse Ox O2 Delivery O2 Flow Rate FiO2 03/29/16 16:25 104 20 135/75 94 Room Air 03/29/16 15:55 93 Room Air 03/29/16 14:08 106 20 137/84 94 Room Air 03/29/16 14:05 98.4 112 20 137/84 94 Physical Exam GENERAL: This is a well-nourished, well-developed patient, in no apparent distress. SKIN: Erythematous rash noted to groin, under breasts. HEAD: Atraumatic. Normocephalic. No temporal or scalp tenderness. EYES: Pupils equal round and reactive. Extraocular motions intact. No scleral icterus. No injection or drainage. ENT: Nose without bleeding, purulent drainage or septal hematoma. Throat without erythema, tonsillar hypertrophy or exudate. Uvula midline. Airway patent. NECK: Trachea midline. No JVD or lymphadenopathy. Supple, nontender, no meningeal signs. CARDIOVASCULAR: Regular rate and rhythm without murmurs, gallops, or rubs. RESPIRATORY: Clear to auscultation. Breath sounds equal bilaterally. No wheezes , rales, or rhonchi. GASTROINTESTINAL: Abdomen soft, non-tender, nondistended. No hepato-splenomegaly , or palpable masses. No guarding. MUSCULOSKELETAL: Right leg has a sugar splint in place, intact sensation to right foot toes. Left leg noted with muscle atrophy, left foot drop noted. Painful with extension and flexion of left ankle. Bilateral pedal pulses 2+. Trace pretibial edema. NEUROLOGICAL: Awake, alert oriented 3. Anxious. No focal deficit. Laboratory Laboratory Tests Test 03/29/16 03/29/16 15:23 15:43 White Blood Count 10.8 Red Blood Count 3.85 Hemoglobin 13.5 Hematocrit 39.6 Mean Corpuscular Volume 102.9 Mean Corpuscular Hemoglobin 35.2 Mean Corpuscular Hemoglobin 34.2 Concent Red Cell Distribution Width 15.7 Platelet Count 255 Mean Platelet Volume 7.5 Neutrophils (%) (Auto) 74.5 Lymphocytes (%) (Auto) 16.3 Monocytes (%) (Auto) 8.4 Eosinophils (%) (Auto) 0.4 Basophils (%) (Auto) 0.4 Neutrophils # (Auto) 8.1 Lymphocytes # (Auto) 1.8 Monocytes # (Auto) 0.9 Eosinophils # (Auto) 0.0 Basophils # (Auto) 0.0 CBC Comment DIFF FINAL Differential Comment Prothrombin Time 12.2 Prothromb Time International 1.1 Ratio Activated Partial 26.0 Thromboplast Time Sodium Level 132 Potassium Level 4.1 Chloride Level 94 Carbon Dioxide Level 26.3 Anion Gap 12 Blood Urea Nitrogen 3 Creatinine 0.40 Estimat Glomerular Filtration 165 Rate Random Glucose 94 Lactic Acid Level 3.2 Calcium Level 8.2 Total Bilirubin 0.9 Aspartate Amino Transf 94 (AST/SGOT) Alanine Aminotransferase 45 (ALT/SGPT) Alkaline Phosphatase 163 Total Creatine Kinase 23 Troponin I LESS THAN 0.02 Total Protein 6.6 Albumin 3.1 Lipase 104 Urine Color YELLOW Urine Turbidity CLOUDY Urine pH 6.5 Urine Specific Steen 1.012 Urine Protein 30 Urine Glucose (UA) NEG Urine Ketones NEG Urine Occult Blood MOD Urine Nitrite NEG Urine Bilirubin NEG Urine Urobilinogen 2.0 Urine Leukocyte Esterase LARGE Urine RBC 3 Urine WBC 126 Urine WBC Clumps FEW Urine Squamous Epithelial 2 Cells Urine Amorphous Sediment RARE Urine Bacteria MANY Urine Mucus FEW Microscopic Urinalysis Comment CULTURE INDICATED Date/Time Procedure Status Source Growth 03/29/16 15:43 Urine Culture Received Urine Clean Catch Pending (Nikki Ramires) Result Diagram: 03/29/16 1523 03/29/16 1523 Imaging Last Impressions Chest X-Ray 03/29/16 1433 Signed Impressions: Service Date/Time: Tuesday, March 29, 2016 14:40 - CONCLUSION: No evidence of acute cardiopulmonary disease. Dexter Worley MD Abdomen/Pelvis CT 03/29/16 1433 Signed Impressions: Service Date/Time: Tuesday, March 29, 2016 16:49 - CONCLUSION: 1. 12.5 cm uterus characteristic of a fibroid uterus with some entrapped endometrial fluid. 2. Diffuse fatty infiltration of the liver. 3. Otherwise no acute findings within the abdomen or pelvis. Mild anasarca. Previous right hip replacement. Coronary calcifications. Fitz Melvin MD (Nikki Ramires) Assessment and Plan Problem List: (1) Sepsis (2) UTI (urinary tract infection) (3) Spina bifida (4) Fracture of right tibia and fibula (5) Intertriginous candidiasis (6) Hx of fall (7) Tobacco abuse (8) CMT (Kxrdhiv-Dcqof-[id number] disease) Assessment and Plan Admit to Dr. Escalante 55-year-old female with recent right proximal distal tib- fib fracture, was sent home with home health care. Was found leaning urine, inability to take care of herself. In the emergency room, she was noted in sepsis, elevated heart rate, lactic acidosis and presence of UTI. Sepsis, secondary to urinary tract infection Continue with empiric antibiotics Continue with IV fluids Repeat lactic acid in the morning Fungal rash Nystatin ointment to be applied Recent right proximal distal tib-fib fracture -Continue with splint We will obtain orthopedic consultation -Physical therapy for evaluation -Pain management has been ordered Spina bifida Continue with baclofen Hypertension Continue with home medication Tobacco abuse -Counseling has been completed, nicotine patch has been ordered History of CMT Continue to monitor Case management consultation for rehabilitation placement Pepcid for GI prophylaxis Heparin for DVT prophylaxis Home medications have been reviewed, initiated as indicated Plan of care has been discussed with the patient, attending and registered nurse. Further management of the patient be dependent on the hospital course This patient was seen by myself and Dr. Escalante, this H&P is written on his behalf (Nikki Ramires) Assessment and Plan Pt evaluation was done chart was reviewed plan of care mellissa villagomez (Mamie Escalante MD) Physician Certification 2 Midnight Certification Type: Admission for Inpatient Services Order for Inpatient Services The services are ordered in accordance with Medicare regulations or non- Medicare payer requirements, as applicable. In the case of services not specified as inpatient-only, they are appropriately provided as inpatient services in accordance with the 2-midnight benchmark. Estimated LOS (days): 2 2 days is the estimated time the patient will need to remain in the hospital, assuming treatment plan goals are met and no additional complications. Post-Hospital Plan: SNF (Nikki Ramires) Problem Qualifiers (1) Sepsis: Qualified Code: A41.9 - Sepsis, due to unspecified organism (2) UTI (urinary tract infection): Qualified Code: N30.00 - Acute cystitis without hematuria (3) Fracture of right tibia and fibula: Qualified Code: S82.201D - Fracture of right tibia and fibula, closed, with routine healing, subsequent encounter Nikki Ramires Mar 29, 2016 17:51 Mamie Escalante MD Mar 30, 2016 16:54
[2016-03-29] MEDS: HYDROmorphone HCL PF 1 MG/ML VIAL IV PUSH PRN ×2 (18:43→22:29)
[2016-03-29] MEDS ORDERED: SOD PHOSPHATE/SOD BIPHOSPHATE (ADULT) ENEMA 133ML PR PRN (20:15)
[2016-03-29] MEDS ORDERED: LACTULOSE SYRUP 20 GM/30 ML CUP PO PRN (20:15)
[2016-03-29] MEDS ORDERED: LACTULOSE SYRUP 20 GM/30 ML CUP PO ONE (20:15)
[2016-03-29] MEDS: CARVEDILOL 3.125 MG TAB PO SCH (20:51)
[2016-03-29] MEDS: ACETAMINOPHEN/HYDROcodone 325 MG/7.5 MG TAB PO PRN (20:51)
[2016-03-29] MEDS: HEPARIN SODIUM - SQ 10,000 UNITS/ML VIAL SQ SCH (20:51)
[2016-03-29] MEDS: NYSTATIN 100,000 U/GM OINT 15 GM TUBE TOPICAL SCH (20:53)
[2016-03-29] MEDS: SODIUM CHLORIDE 0.9% FLUSH 5 ML FLUSH FLUSH SCH (21:00)
[2016-03-29] MEDS: SODIUM CHLOR 0.9% 1000 ML INJ 1,000 ML IV SCH (21:00)
[2016-03-30] VITALS (7 sets, daily range): BP systolic 102–125; BP diastolic 57–74; PULSE 81–95; RESP 17–20; TEMP 95.3–97.9; O2SAT 92–96
[2016-03-30] MEDS: HYDROCORTISONE 2.5% CR (ANUSOL HC) 30 GM TUBE SCH ×3 (00:04→23:36)
[2016-03-30] MEDS: PIPERACIL-TAZO 3.375 GM PREMIX 50 ML IV SCH ×5 (00:05→23:25)
[2016-03-30] MEDS: ACETAMINOPHEN/HYDROcodone 325 MG/7.5 MG TAB PO PRN ×4 (04:17→23:26)
[2016-03-30] MEDS: HYDROmorphone HCL PF 1 MG/ML VIAL IV PUSH PRN ×7 (05:03→23:26)
[2016-03-30 06:10] LABS: BASOPHIL % 0.5 % (0.0-2.0); EOSINOPHIL % 0.5 % (0.0-4.0); HEMATOCRIT 33.3 % (35.0-46.0); HEMO FLAGS DIFF FINAL; LYMPH % 17.1 % (9.0-44.0); LYMPHOCYTE # 1.4 TH/MM3 (1.0-4.8); MEAN CELL VOLUME 103.6 FL (80.0-100.0); MEAN CORPUSCULAR HGB CONC 33.8 % (32.0-36.0); MONO % 9.9 % (0.0-8.0); PLATELET COUNT 197 TH/MM3 (150-450); RED BLOOD COUNT 3.22 MIL/MM3 (4.00-5.30); RED CELL DISTRIBUTION WIDTH 15.7 % (11.6-17.2); WHITE BLOOD COUNT 8.3 TH/MM3 (4.0-11.0)
[2016-03-30 07:15] LABS: BICARBONATE 28.4 MEQ/L (21.0-32.0); POTASSIUM 3.5 MEQ/L (3.5-5.1)
[2016-03-30 07:40] LABS: CALCIUM-PROTEIN CORRECTED 8.2 MG/DL (8.5-10.1)
[2016-03-30] MEDS: CARVEDILOL 3.125 MG TAB PO SCH ×2 (08:44→20:23)
[2016-03-30] MEDS: POTASSIUM CHLORIDE 10 MEQ CAP PO SCH (08:44)
[2016-03-30] MEDS: FAMOTIDINE 20 MG TAB PO SCH ×2 (08:44→20:23)
[2016-03-30] MEDS: REMOVE OLD NICODERM (NICOTINE) PATCH TD SCH (08:44)
[2016-03-30] MEDS: BACLOFEN 20 MG TAB PO SCH ×3 (08:44→16:38)
[2016-03-30] MEDS: NICOTINE 7 MG/24 HR PATCH TD SCH (08:44)
[2016-03-30] MEDS: SODIUM CHLORIDE 0.9% FLUSH 5 ML FLUSH FLUSH SCH ×2 (08:45→20:23)
[2016-03-30] MEDS: NYSTATIN 100,000 U/GM OINT 15 GM TUBE TOPICAL SCH ×2 (08:46→20:26)
[2016-03-30] MEDS: SODIUM CHLOR 0.9% 1000 ML INJ 1,000 ML IV SCH ×2 (08:47→12:08)
[2016-03-30] MEDS ORDERED: HYDROCORTISONE 2.5% CR (ANUSOL HC) 30 GM TUBE SCH (09:00)
--- NOTE | 2016-03-30 10:59 | HHI.PR ---
Subjective Subjective Remarks I have constant nausea I feel really bad No shortness of breath Chest pain Nothing by mouth for now Alert, anxiety noted (Halina Mccracken) Review of Systems Constitutional Constitutional: Fatigue, Weakness (generalized) (Halina Mccracken) GI/Abdomen GI/Abdominal Exam: Nausea (constant, acute on chronic) (Halina Mccracken) Genitourinary Remarks [place] orange clear urine (Halina Mccracken) Musculoskeletal MS: Weakness, Stiffness, Swelling (right leg, supported with brace) (Halina Mccracken) Psychiatric Psychiatric: Anxiety (Halina Mccracken) Vitals/Results Intake & Output 03/29/16 03/29/16 03/30/16 15:00 23:00 07:00 Intake Total 566 ml Output Total 1400 ml 600 ml Balance -1400 ml -34 ml Intake IV Total 566 ml Output Urine Total 1400 ml 600 ml # Bowel Movements 1 Vital Signs Vital Signs Date Time Temp Pulse Resp B/P Pulse Ox O2 Delivery O2 Flow Rate FiO2 03/30/16 08:00 97.5 91 20 125/72 94 03/30/16 04:24 97.7 91 20 102/67 93 03/30/16 00:29 95.3 95 20 108/72 94 03/29/16 20:32 97.3 84 19 101/58 97 03/29/16 19:14 93 18 131/61 96 Nasal Cannula 2 03/29/16 18:29 130 22 144/60 95 Room Air 03/29/16 16:25 104 20 135/75 94 Room Air 03/29/16 15:55 93 Room Air 03/29/16 14:08 106 20 137/84 94 Room Air 03/29/16 14:05 98.4 112 20 137/84 94 (Halina Mccracken) CBC/BMP: 03/30/16 0548 03/30/16 0548 Lab Results Laboratory Tests Test 03/29/16 03/29/16 03/30/16 15:23 15:43 05:48 White Blood Count 10.8 TH/MM3 8.3 TH/MM3 Red Blood Count 3.85 MIL/MM3 3.22 MIL/MM3 Hemoglobin 13.5 GM/DL 11.3 GM/DL Hematocrit 39.6 % 33.3 % Mean Corpuscular Volume 102.9 FL 103.6 FL Mean Corpuscular Hemoglobin 35.2 PG 35.0 PG Mean Corpuscular Hemoglobin 34.2 % 33.8 % Concent Red Cell Distribution Width 15.7 % 15.7 % Platelet Count 255 TH/MM3 197 TH/MM3 Mean Platelet Volume 7.5 FL 7.5 FL Neutrophils (%) (Auto) 74.5 % 72.0 % Lymphocytes (%) (Auto) 16.3 % 17.1 % Monocytes (%) (Auto) 8.4 % 9.9 % Eosinophils (%) (Auto) 0.4 % 0.5 % Basophils (%) (Auto) 0.4 % 0.5 % Neutrophils # (Auto) 8.1 TH/MM3 6.0 TH/MM3 Lymphocytes # (Auto) 1.8 TH/MM3 1.4 TH/MM3 Monocytes # (Auto) 0.9 TH/MM3 0.8 TH/MM3 Eosinophils # (Auto) 0.0 TH/MM3 0.0 TH/MM3 Basophils # (Auto) 0.0 TH/MM3 0.0 TH/MM3 CBC Comment DIFF FINAL DIFF FINAL Differential Comment Prothrombin Time 12.2 SEC Prothromb Time International 1.1 RATIO Ratio Activated Partial 26.0 SEC Thromboplast Time Sodium Level 132 MEQ/L 136 MEQ/L Potassium Level 4.1 MEQ/L 3.5 MEQ/L Chloride Level 94 MEQ/L 101 MEQ/L Carbon Dioxide Level 26.3 MEQ/L 28.4 MEQ/L Anion Gap 12 MEQ/L 7 MEQ/L Blood Urea Nitrogen 3 MG/DL 4 MG/DL Creatinine 0.40 MG/DL 0.44 MG/DL Estimat Glomerular Filtration 165 ML/MIN 147 ML/MIN Rate Random Glucose 94 MG/DL 95 MG/DL Lactic Acid Level 3.2 mmol/L 1.5 mmol/L Calcium Level 8.2 MG/DL 7.2 MG/DL Total Bilirubin 0.9 MG/DL Aspartate Amino Transf 94 U/L (AST/SGOT) Alanine Aminotransferase 45 U/L (ALT/SGPT) Alkaline Phosphatase 163 U/L Total Creatine Kinase 23 U/L Troponin I LESS THAN 0.02 NG/ML Total Protein 6.6 GM/DL 5.3 GM/DL Albumin 3.1 GM/DL Lipase 104 U/L Urine Color YELLOW Urine Turbidity CLOUDY Urine pH 6.5 Urine Specific [place] 1.012 Urine Protein 30 mg/dL Urine Glucose (UA) NEG mg/dL Urine Ketones NEG mg/dL Urine Occult Blood MOD Urine Nitrite NEG Urine Bilirubin NEG Urine Urobilinogen 2.0 MG/DL Urine Leukocyte Esterase LARGE Urine RBC 3 /hpf Urine WBC 126 /hpf Urine WBC Clumps FEW Urine Squamous Epithelial 2 /hpf Cells Urine Amorphous Sediment RARE Urine Bacteria MANY /hpf Urine Mucus FEW /lpf Microscopic Urinalysis Comment CULTURE INDICATED Protein Corrected Calcium 8.2 MG/DL Microbiology Microbiology 03/29/16 Urine Culture, Received Pending Imaging Remarks Last Impressions Chest X-Ray 03/29/16 143 Signed Impressions: Service Date/Time: Tuesday, March 29, 2016 14:40 - CONCLUSION: No evidence of acute cardiopulmonary disease. Dexter Worley MD Abdomen/Pelvis CT 03/29/163 Signed Impressions: Service Date/Time: Tuesday, March 29, 2016 16:49 - CONCLUSION: 1. 12.5 cm uterus characteristic of a fibroid uterus with some entrapped endometrial fluid. 2. Diffuse fatty infiltration of the liver. 3. Otherwise no acute findings within the abdomen or pelvis. Mild anasarca. Previous right hip replacement. Coronary calcifications. Fitz Melvin MD Current Medications Active Medications Acetaminophen (Tylenol) 650 mg Q4H PRN PO; Start 03/29/16 at 17:45 Acetaminophen/ Hydrocodone Bitart ([place] 7.5-325 Mg) 1 tab Q6H PRN PO Last administered on 03/30/16 04:17; Admin Dose 1 TAB; Start 03/29/16 at 18:30 Albuterol/ Ipratropium (Duoneb Neb) 1 ampule Q15M INH Last administered on 17:15; Admin Dose 1 AMPULE; Start 03/29/16 at 17:00; Stop 03/29/16 at 17:16 ; Status DC Aspirin (Aspirin Chew) 81 mg DAILY CHEW; Start 03/30/16 at 09:00 Baclofen (Lioresal) 20 mg TID PO Last administered on 03/30/16 08:44; Admin Dose 20 MG; Start 03/30/16 at 09:00 Carvedilol (Coreg) 3.125 mg BID PO Last administered on 03/30/16 08:44; Admin Dose 3.125 MG; Start 03/29/16 at 21:00 Ceftriaxone Sodium/Sodium Chloride (Rocephin Inj/NS Inj) 100 ml @ 200 mls/hr ONCE ONCE IV Last administered on 03/29/16 16:42; Admin Dose 200 MLS/HR; Start 03/29/16 at 16:30; Stop 03/29/16 at 16:59; Status DC Clopidogrel Bisulfate (Plavix) 75 mg DAILY PO; Start 03/30/16 at 09:00 Famotidine (Pepcid) 20 mg BID PO Last administered on 03/30/16 08:44; Admin Dose 20 MG; Start 03/30/16 at 09:00 Heparin Sodium (Porcine) 5000 units 5,000 units Q12HR SQ Last administered on 20:51; Admin Dose 5,000 UNITS; Start 03/29/16 at 21:00 Hydrocortisone (Anusol Hc 2.5% Rect Cream) APPLY TO AFFECTED AREA BID .XX; Start 03/30/16 at 09:00; Stop 03/30/16 at 09:00; Status DC Hydrocortisone (Anusol Hc 2.5% Rect Cream) APPLY TO AFFECTED AREA Q12H .XX Last administered on 03/30/16 00:04; Admin Dose 1 APPLIC; Start 03/29/16 at 23:00 Hydromorphone HCl (Dilaudid Pf Inj) 1 mg Q3H PRN IV PUSH Last administered on 08:45; Admin Dose 1 MG; Start 03/29/16 at 18:30 Iohexol 97 ml 97 ml STK-MED ONCE IV Last administered on 03/29/16 16:50; Admin Dose 97 ML; Start 03/29/16 at 16:50; Stop 03/29/16 at 16:51; Status DC IV Flush (NS Flush) 2 ml BID FLUSH; Start 03/29/16 at 21:00 IV Flush (NS Flush) 2 ml UNSCH PRN FLUSH; Start 03/29/16 at 17:45 Lactulose (Lactulose Liq) 30 ml DAILY PRN PO; Start 03/29/16 at 20:15 Lactulose (Lactulose Liq) 30 ml NOW ONCE PO Last administered on 03/29/16 20: 51; Admin Dose 30 ML; Start 03/29/16 at 20:15; Stop 03/29/16 at 20:16; Status DC Miscellaneous Information 1 HS TD; Start 03/30/16 at 21:00 Morphine Sulfate (Morphine Inj) 3 mg ONCE ONCE IV PUSH Last administered on 15:41; Admin Dose 3 MG; Start 03/29/16 at 14:45; Stop 03/29/16 at 14:46 ; Status DC Morphine Sulfate 4 mg 4 mg ONCE ONCE IV Last administered on 03/29/16 16:42; Admin Dose 4 MG; Start 03/29/16 at 15:45; Stop 03/29/16 at 15:46; Status DC Naloxone HCl (Narcan Inj) 0.4 mg UNSCH PRN IV; Start 03/29/16 at 17:45 Nicotine (Habitrol 7 Mg Patch.24 Hr) 1 patch DAILY TD Last administered on 08:44; Admin Dose 1 PATCH; Start 03/30/16 at 09:00 Nystatin (Mycostatin Oint) 1 applic Q12HR TOPICAL Last administered on 08:46; Admin Dose 1 APPLIC; Start 03/29/16 at 21:00 Nystatin 1 applic 1 applic ONCE ONCE TOPICAL Last administered on 03/29/16 17: 12; Admin Dose 1 APPLIC; Start 03/29/16 at 16:30; Stop 03/29/16 at 16:31; Status DC Ondansetron HCl (Zofran Inj) 4 mg Q6H PRN IVP; Start 03/29/16 at 17:45 Ondansetron HCl (Zofran Inj) 4 mg STK-MED ONCE .ROUTE; Start 03/29/16 at 14:23; Stop 03/29/16 at 14:24; Status DC Ondansetron HCl 4 mg 4 mg ONCE ONCE IVP Last administered on 03/29/16 15:42; Admin Dose 4 MG; Start 03/29/16 at 14:45; Stop 03/29/16 at 14:46; Status DC Piperacillin Sod/ Tazobactam Sod 100 ml @ 200 mls/hr ONCE ONCE IV Last administered on 03/29/16 18:18; Admin Dose 200 MLS/HR; Start 03/29/16 at 17:30 ; Stop 03/29/16 at 17:59; Status DC Piperacillin Sod/ Tazobactam Sod (Zosyn 3.375 Gm Premix) 50 ml @ 100 mls/hr Q6H IV Last administered on 03/30/16 06:26; Admin Dose 100 MLS/HR; Start at 00:00 Potassium Chloride (KCl) 10 meq DAILY PO Last administered on 03/30/16 08:44; Admin Dose 10 MEQ; Start 03/30/16 at 09:00 Sodium Biphosphate/ Sodium Phosphate (Fleets Enema (Adult)) 133 ml UNSCH PRN [place] ; Start 03/29/16 at 20:15 Sodium Chloride 1,000 ml @ 999 mls/hr BOLUS ONCE IV Last administered on 18:18; Admin Dose 999 MLS/HR; Start 03/29/16 at 17:30; Stop 03/29/16 at 18: 30; Status DC Sodium Chloride 1,000 ml @ 999 mls/hr BOLUS ONCE IV Last administered on 19:37; Admin Dose 999 MLS/HR; Start 03/29/16 at 17:30; Stop 03/29/16 at 18: 30; Status DC Sodium Chloride (NS 1000 ml Inj) 1,000 ml @ 100 mls/hr Q10H IV Last administered on 03/30/16 08:47; Admin Dose 100 MLS/HR; Start 03/29/16 at 17:40 Sodium Chloride (NS 500 ml Inj) 500 ml @ 500 mls/hr BOLUS ONCE IV Last administered on 03/29/16 15:41; Admin Dose 500 MLS/HR; Start 03/29/16 at 14:45 ; Stop 03/29/16 at 15:44; Status DC Sodium Chloride (NS 500 ml Inj) 500 ml @ 500 mls/hr BOLUS ONCE IV Last administered on 03/29/16 17:13; Admin Dose 500 MLS/HR; Start 03/29/16 at 17:00 ; Stop 03/29/16 at 17:59; Status DC Vancomycin HCl 1000 mg/Sodium Chloride 250 ml @ 250 mls/hr ONCE ONCE IV Last administered on 03/29/16 18:43; Admin Dose 250 MLS/HR; Start 03/29/16 at 17:30 ; Stop 03/29/16 at 18:29; Status DC (Halina Mccracken M. [employer]) Physical Exam General General Appearance: Well Developed, Well Nourished, Obese (Mari Mccrackenan M. [employer]) Eyes Eye Exam: Pupils Equal, Pupils Reactive, Sclera White ([place],Halina M. [employer]) Ears & Nose Ears & Nose Exam: Nasal Mucosa [place] ([place],Halina M. [employer]) Throat Throat Exam: Oral Mucosa [place] & Moist ([place],Halina M. [employer]) Neck Neck Exam: Neck Supple, Trachea Midline (KaykayMariHalina M. [employer]) Pulmonary Resp Exam: Breath Sounds Equal, Diminished Breath Sounds, Poor Inspiratory Effort (low volumes) Resp Remarks Mild expiratory wheeze anteriorly and some posteriorly (KaykayHalina M. [employer] PA[employer]) Cardiology CV Exam: Regular (KaykayHalina M. [employer]) Gastrointestinal/Abdomen GI Exam: Soft (obese), Non-Tender, Bowel Sounds Present (ShawmutMariHalina M. [employer]) Genitourinary Remarks orange, Gonzales catheter (KaykayMariHalina M. [employer]) Musculoskeletal MS Exam: Unable to Ambulate MS Remarks Wheelchair-bound 3-4 years Full leg brace right leg (ShawmutMariHalina M. [employer]) Extremeties Extremities Exam: Trace Edema Extremeties Remarks Right lower leg ([place]Halina M. [employer]) Neurologic Neuro Exam: Alert, Awake, Oriented, Speech Clear ([place]Halina M. [employer]) Psychiatric Psych Remarks Anxiety mild over current condition ([place],Halina M. [employer]) VTE Prophylaxis VTE Prophylaxis Device: SCDs VTE Prophylaxis Meds: Heparin VTE Remarks ASA ([place]Halina M. [employer]) PUD Prophylasis PUD Remarks Pepcid (KaykayHalina M. [employer]) Assessment/Plan Assessment/Plan Problem List: (1) Sepsis (2) UTI (urinary tract infection) (3) Spina bifida (4) Fracture of right tibia and fibula (5) Intertriginous candidiasis (6) Hx of fall (7) Tobacco abuse (8) CMT (Cwdnxsy-Zhjyk-Azmyq disease) Sepsis, secondary to urinary tract infection Continue with empiric antibiotics Continue with IV fluids Lactic acid decreasing this a.m.. 1.5, monitor Fungal rash, medical management Nystatin ointment to be applied Recent right proximal distal tib-fib fracture -Continue with splint orthopedic consultation pending, just called and asked for follow-up x-ray, hold back up to the floor and stated patient could eat, no surgery for now -Physical therapy for evaluation -Pain management Diet ordered, patient can now have by mouth fluids per orthopedic Spina bifida, medical management Continue with baclofen Hypertension Continue with home medication Tobacco abuse nicotine patch History of CMT Case management consultation for rehabilitation placement Pepcid for GI prophylaxis Heparin for DVT prophylaxis (Halina Mccracken) Assessment/Plan Patient seen and examined as above [id number] time spent with patient Labs radiological data and medications reviewed Discussed with patient Discussed with RN plan of care discussed with MAURICIO (Mamie Escalante MD) Halina Mccracken Mar 30, 2016 10:59 Mamie Escalante MD Mar 30, 2016 12:12
[2016-03-30] MEDS: HEPARIN SODIUM - SQ 10,000 UNITS/ML VIAL SQ SCH ×2 (11:00→20:22)
[2016-03-30] MEDS: CLOPIDOGREL 75 MG TAB PO SCH (11:00)
[2016-03-30] MEDS: ASPIRIN 81 MG CHEW TAB CHEW SCH (11:01)
--- NOTE | 2016-03-30 15:01 | EKG ---
Date Performed: 03/29/2016 Time Performed: 15:49:23 PTAGE: 55 years EKG: SINUS TACHYCARDIA NONSPECIFIC ST & T-WAVE ABNORMALITY When compared to previous tracing, le ft ventricular hypertrophy Changes no longer present. ST-T changes persist. ABNORMAL RHYTHM ECG PREVIOUS TRACING : 08/27/2012 17.45 DOCTOR: Xavier Wong Interpretating Date/Time 03/30/2016 14:59:43
--- NOTE | 2016-03-30 15:12 | RADRPT ---
EXAM DATE/TIME: 03/30/2016 14:08 [facility] COMPARISON: TIBIA/FIBULA RIGHT (AP/LAT), March 27, 2016, 16:40. INDICATIONS : Evaluate Tibia/Fibula fractures. MEDICAL HISTORY : Tibia/Fibula fractures. Spina bifida. SURGICAL HISTORY : None. ENCOUNTER: Subsequent ACUITY: 4 - 6 days PAIN SCORE: 10/10 LOCATION: Right Tibia/Fibula. FINDINGS: 3 views of the right tibia and fibula. Severe bone demineralization again noted. Proximal tibial shaf t fracture is again seen. No definite intra-articular involvement. No gross change in alignment. Frac tures of the distal tibia shaft and distal fibular shaft also again seen. There is evidence of impact ion of the distal tibia fracture and approximately 25-30 anterior angulation of the distal fragment . CONCLUSION: Proximal and distal tibia fractures as well as distal fibular fracture again seen. There is anterior angulation of the distal tibia fracture fragment now seen. Haresh Gonzalez MD on March 30, 2016 at 15:09 Board Certified Radiologist. This report was verified electronically.
[2016-03-31 00:45] VITALS: BP 105/80; PULSE 99; RESP 18; TEMP 97.1; O2SAT 96
[2016-03-31] MEDS: HYDROmorphone HCL PF 1 MG/ML VIAL IV PUSH PRN ×5 (02:53→20:14)
[2016-03-31] MEDS: ACETAMINOPHEN/HYDROcodone 325 MG/7.5 MG TAB PO PRN ×3 (06:06→18:27)
[2016-03-31] MEDS: PIPERACIL-TAZO 3.375 GM PREMIX 50 ML IV SCH ×3 (06:07→18:25)
[2016-03-31 08:00] VITALS: BP 127/70; PULSE 81; RESP 17; TEMP 97.4; O2SAT 96
[2016-03-31] MEDS: ASPIRIN 81 MG CHEW TAB CHEW SCH (09:50)
[2016-03-31] MEDS: CLOPIDOGREL 75 MG TAB PO SCH (09:50)
[2016-03-31] MEDS: FAMOTIDINE 20 MG TAB PO SCH ×2 (09:51→20:16)
[2016-03-31] MEDS: POTASSIUM CHLORIDE 10 MEQ CAP PO SCH (09:51)
[2016-03-31] MEDS: BACLOFEN 20 MG TAB PO SCH ×3 (09:51→18:25)
[2016-03-31] MEDS: HEPARIN SODIUM - SQ 10,000 UNITS/ML VIAL SQ SCH ×2 (09:51→20:16)
[2016-03-31] MEDS: CARVEDILOL 3.125 MG TAB PO SCH ×2 (09:51→20:16)
[2016-03-31] MEDS: SODIUM CHLORIDE 0.9% FLUSH 5 ML FLUSH FLUSH SCH ×2 (09:51→20:17)
[2016-03-31] MEDS: REMOVE OLD NICODERM (NICOTINE) PATCH TD SCH (09:52)
[2016-03-31] MEDS: NICOTINE 7 MG/24 HR PATCH TD SCH (09:52)
[2016-03-31] MEDS: NYSTATIN 100,000 U/GM OINT 15 GM TUBE TOPICAL SCH ×2 (09:53→20:17)
--- NOTE | 2016-03-31 10:29 | HHI.PR ---
Subjective Subjective Remarks nausea improved able to eat small amounts this a.m. Increased pain right leg No shortness of breath No Chest pain Alert, anxiety noted (Halina Mccracken) Review of Systems Constitutional Constitutional: Fatigue, Weakness (generalized) Constitutional Remarks 10 point ROS done. Positives include right leg pain, nausea improved, anxiety. Constipation mild, no BM 2 days Other systems negative or unremarkable ( Halina Mccracken) Pulmonary Respiratory: Coughing (mild occasional) (Halina Mccracken) GI/Abdomen GI/Abdominal Exam: Nausea (constant, acute on chronic), Constipation (no BM 2 days) (Halina Mccracken) Genitourinary Remarks [place] orange clear urine (Halina Mccracken) Musculoskeletal MS: Weakness, Stiffness, Swelling (right leg, supported with brace) MS Remarks Right leg wrapped in secured with Rob bandage. Nonweightbearing. Bed rest for now (Halina Mccracken) Psychiatric Psychiatric: Anxiety, Depression (states she gets depressed times) (Halina Mccracken) Vitals/Results Intake & Output 03/30/16 03/30/16 03/31/16 15:00 23:00 07:00 Intake Total 1478 ml 1080 ml 240 ml Output Total 875 ml 1650 ml 950 ml Balance 603 ml -570 ml -710 ml Intake Oral 720 ml 480 ml 240 ml IV Total 758 ml 600 ml Output Urine Total 875 ml 1650 ml 950 ml # Bowel Movements 1 0 0 Vital Signs Vital Signs Date Time Temp Pulse Resp B/P Pulse Ox O2 Delivery O2 Flow Rate FiO2 03/31/16 08:00 97.4 81 17 127/70 96 03/31/16 07:20 Room Air 03/31/16 00:45 97.1 99 18 105/80 96 03/30/16 19:20 96.7 87 17 111/66 92 03/30/16 16:00 97.1 84 19 110/74 96 03/30/16 12:00 96.8 81 19 117/59 94 (Halina Mccracken) CBC/BMP: 03/30/16 0548 03/30/16 0548 Current Medications Active Medications Miscellaneous Information 1 HS TD; Start 2/19/17 at 21:00 (Halina Mccracken M. [employer]) Physical Exam General General Appearance: Well Developed, Well Nourished, Anxious, Obese (Halina Mccracken M. [employer]) Eyes Eye Exam: Pupils Equal, Pupils Reactive, Sclera White (Halina Mccracken M. [employer]) Ears & Nose Ears & Nose Exam: Nasal Mucosa [place] (Halina Mccracken M. [employer]) Throat Throat Exam: Oral Mucosa [place] & Moist (Halina Mccracken M. [employer]) Neck Neck Exam: Neck Supple, Trachea Midline (Halina Mccracken M. [employer]) Pulmonary Resp Exam: Breath Sounds Equal, Diminished Breath Sounds, Poor Inspiratory Effort (low volumes) Resp Remarks Mild expiratory wheeze anterior, occasional cough Long-term smoker (Mari Mccrackenan M. [employer]) Cardiology CV Exam: Regular ([place],Halina M. [employer]) Gastrointestinal/Abdomen GI Exam: Soft (obese), Non-Tender, Bowel Sounds Present (Halina Mccracken M. [employer]) Genitourinary Remarks orange, [place] catheter (Kaykay,Susan M. [employer]) Musculoskeletal MS Exam: Unable to Ambulate MS Remarks Wheelchair-bound 3-4 years Full leg brace right leg secured with Rob bandage. Dressing clean dry and intact (Mari Mccrackenan M. [employer]) Integumentary Skin Exam: Clear, Warm, Dry, Normal Turgor (Mair Mccrackenan M. [employer]) Extremeties Extremities Exam: Trace Edema Extremeties Remarks Right lower leg (Halina Mccracken M. [employer]) Neurologic Neuro Exam: Alert, Awake, Oriented, Speech Clear (Mari Mccrackenan M. [employer]) Psychiatric Psych Remarks Anxiety mild over current condition (Halina Mccracken M. [employer]) VTE Prophylaxis VTE Prophylaxis Device: SCDs VTE Prophylaxis Meds: Heparin VTE Remarks ASA ([place]MariHalina M. [employer] ENG[employer]ER) PUD Prophylasis PUD Remarks Pepcid ([place],Halina M. [employer]) Assessment/Plan Assessment/Plan Sepsis, secondary to urinary tract infection Continue with empiric antibiotics Continue with IV fluids Lactic acid decreasing this a.m.. 1.5, monitor Fungal rash, medical management Nystatin ointment to be applied, resolving Recent right proximal and distal tib-fib fracture -Continue with splint orthopedic consultation , no surgery for yesterday. Will follow -Physical therapy for evaluation -Pain management Appetite fair, Spina bifida, medical management Continue with baclofen Hypertension Continue with home medication Tobacco abuse nicotine patch History of CMT Case management consultation for rehabilitation placement Not ready for discharge yet Pepcid for GI prophylaxis Heparin for DVT prophylaxis Monitor labs in the morning. Pain management, complaints of unresolved constant pain in right leg. (Halina Mccracken) Assessment/Plan Patient seen and examined as above Medications reviewed Labs reviewed Discussed with patient Plan of care discussed with [employer] Discussed with major case detective about DC planning to SNF (Mamie Escalante MD) Halina Mccracken Mar 31, 2016 10:29 Mamie Escalante MD Mar 31, 2016 15:48
[2016-03-31] MEDS: HYDROCORTISONE 2.5% CR (ANUSOL HC) 30 GM TUBE SCH (11:00)
[2016-03-31 11:38] VITALS: BP 139/57; PULSE 88; RESP 17; TEMP 97.3; O2SAT 93
[2016-03-31 15:30] VITALS: BP 123/62; PULSE 80; RESP 17; TEMP 97.2; O2SAT 95
--- NOTE | 2016-03-31 18:02 | PD.CONS ---
cc: Sy Martinez Jr., MD HPI Service Orthopedic Surgeons Consult Requested By Primary Care Physician Unknown Admission Diagnosis Diagnoses: Chief Complaint: right tibia fracture History of Present Illness 55-year-old female with history of spina bifida who is wheelchair-bound, previous fall with hip repair, CMT, neuropathy. She reported a fall 4 weeks ago , while transferring to her wheelchair but didn't seek medical treatment until 4 days ago. She was seen in the emergency department where x-rays examination revealed a fracture of the right proximal and distal tibia. Upon discharge from the emergency department she continues to experience increasing right leg pain. She Denies any head injuries. Denies loss of consciousness. Currently patient' s pain is 7 out of 10, exacerbated by movement and attempted transfers, relieved at rest and with IV pain medicine, pain is sharp nonradiating, localized mainly at the right knee. She denies any chest pain or shortness of breath. She returns because she is unable to take care herself and has increased pain as her boyfriend is visually impaired. Review of Systems Constitutional: DENIES: Diaphoretic episodes, Fatigue, Fever, Weight gain, Weight loss, Chills, Dizziness, Change in appetite, Night Sweats Endocrine: DENIES: Abnorml menstrual pattern, Heat/cold intolerance, Polydipsia , Polyuria, Polyphagia Eyes: DENIES: Blurred vision, Diplopia, Eye inflammation, Eye pain, Vision loss , Photosensitivity, Double Vision Ears, nose, mouth, throat: DENIES: Tinnitus, Hearing loss, Vertigo, Nasal discharge, Oral lesions, Throat pain, Hoarseness, Ear Pain, Running Nose, Epistaxis, Sinus Pain, Toothache, Odynophagia Respiratory: DENIES: Apneas, Cough, Snoring, Wheezing, Hemoptysis, Sputum production, Shortness of breath Cardiovascular: DENIES: Chest pain, Palpitations, Syncope, Dyspnea on Exertion , PND, Lower Extremity Edema, Orthopnea, Claudication Gastrointestinal: DENIES: Abdominal pain, Black stools, Bloody stools, Constipation, Diarrhea, Nausea, Vomiting, Difficulty Swallowing, Anorexia Genitourinary: DENIES: Abnormal vaginal bleeding, Dysmenorrhea, Dyspareunia, Sexual dysfunction, Urinary frequency, Urinary incontinence, Urgency, Hematuria , Dysuria, Nocturia, Vaginal discharge Musculoskeletal: COMPLAINS OF: Joint pain, Muscle aches (spasms), DENIES: Stiffness, Joint Swelling, Back pain, Neck pain Integumentary: DENIES: Abnormal pigmentation, Pruritus, Rash, Nail changes, Breast masses, Breast skin changes, Nipple discharge Hematologic/lymphatic: DENIES: Bruising, Lymphadenopathy Neurologic: DENIES: Abnormal gait, Headache, Localized weakness, Paresthesias, Seizures, Speech Problems, Tremor, Poor Balance Psychiatric: DENIES: Anxiety, Confusion, Mood changes, Depression, Hallucinations, Agitation, Suicidal Ideation, Homicidal Ideation, Delusions Past Family Social History Past Medical History 1. Status post fall 11/02/2012 with re-injury to a previous hip replacement. 2. Spina bifida with multiple surgeries as a child and as an adolescent. 3. Peptic ulcer disease in 1981. 4. Charcot-Julia disease. 5. Macrocytosis. 6. CMT neuropathy. 7. Deep venous thrombosis to right lower extremity. Past Surgical History 1. Spina bifida surgery. 2. Right hip pinning in July of 2012 from a fall. 3. Re-do right hip surgery 08/17/2012 with total hip replacement. Reported Medications Reported Meds & Active Scripts Active Reported Ranitidine (Ranitidine HCl) 300 Mg Tab 300 Mg PO DAILY Aspirin 81 Mg Chew 81 Mg CHEW DAILY Potassium Chloride ER (Potassium Chloride) 10 Meq Cap 10 Meq PO DAILY Baclofen 20 Mg Tab 20 Mg PO TID Carvedilol 3.125 Mg Tab 3.125 Mg PO BID Oxycodone-Acetaminophen 10-325 mg Tab 1 Tab PO Q6H PRN Clopidogrel (Clopidogrel Bisulfate) 75 Mg Tab 75 Mg PO DAILY Pravastatin 10 Mg Tab 10 Mg PO DAILY Allergies: Coded Allergies: No Known Allergies (Verified , 03/29/16) Family History CMT neuropathy in her father, he's alive and well, mother has heart disease and she is alive and well. Social History She is a , she has a fiance. States that her two children are . She smokes about a pack a day since age 16. She has occasional alcohol use. Wheelchair bound for the last 3 years. Past Family Social History Allergies: Coded Allergies: No Known Allergies (Verified , 03/29/16) Active Ordered Medications Current Medications Medications (Trade) Dose Ordered Sig/Yola Route Start Time Stop Time Status Last Admin (NS 1000 ml Inj) 1,000 ml @ 100 mls/hr Q10H IV 03/29/16 17:40 03/30/16 12:08 (NS Flush) 2 ml UNSCH PRN FLUSH 03/29/16 17:45 (NS Flush) 2 ml BID FLUSH 03/29/16 21:00 03/31/16 09:51 (Tylenol) 650 mg Q4H PRN PO 03/29/16 17:45 (Zofran Inj) 4 mg Q6H PRN IVP 03/29/16 17:45 (Narcan Inj) 0.4 mg UNSCH PRN IV 03/29/16 17:45 Heparin Sodium (Porcine) 5000 units 5,000 units Q12HR SQ 03/29/16 21:00 03/31/16 09:51 (Zosyn 3.375 Gm Premix) 50 ml @ 100 mls/hr Q6H IV 03/30/16 00:00 03/31/16 12:34 (Aspirin Chew) 81 mg DAILY CHEW 03/30/16 09:00 03/31/16 09:50 (Lioresal) 20 mg TID PO 03/30/16 09:00 03/31/16 13:46 (Coreg) 3.125 mg BID PO 03/29/16 21:00 03/31/16 09:51 (Plavix) 75 mg DAILY PO 03/30/16 09:00 03/31/16 09:50 (KCl) 10 meq DAILY PO 03/30/16 09:00 03/31/16 09:51 (Pepcid) 20 mg BID PO 03/30/16 09:00 03/31/16 09:51 (Mycostatin Oint) 1 applic Q12HR TOPICAL 03/29/16 21:00 03/31/16 09:53 (Habitrol 7 Mg Patch.24 Hr) 1 patch DAILY TD 03/30/16 09:00 03/31/16 09:52 Miscellaneous Information 1 HS TD 03/30/16 21:00 (Dilaudid Pf Inj) 1 mg Q3H PRN IV PUSH 03/29/16 18:30 03/31/16 14:09 ([place] 7.5-325 Mg) 1 tab Q6H PRN PO 03/29/16 18:30 03/31/16 12:33 (Lactulose Liq) 30 ml DAILY PRN PO 03/29/16 20:15 (Fleets Enema (Adult)) 133 ml UNSCH PRN IL 03/29/16 20:15 (Anusol Hc 2.5% Rect Cream) APPLY TO AFFECTED AREA Q12H .XX 03/29/16 23:00 03/30/16 23:36 Reported Meds & Active Scripts Active Reported Ranitidine (Ranitidine HCl) 300 Mg Tab 300 Mg PO DAILY Aspirin 81 Mg Chew 81 Mg CHEW DAILY Potassium Chloride ER (Potassium Chloride) 10 Meq Cap 10 Meq PO DAILY Baclofen 20 Mg Tab 20 Mg PO TID Carvedilol 3.125 Mg Tab 3.125 Mg PO BID Oxycodone-Acetaminophen 10-325 mg Tab 1 Tab PO Q6H PRN Clopidogrel (Clopidogrel Bisulfate) 75 Mg Tab 75 Mg PO DAILY Pravastatin 10 Mg Tab 10 Mg PO DAILY Physical Exam Vital Signs Vital Signs Date Time Temp Pulse Resp B/P Pulse Ox O2 Delivery O2 Flow Rate FiO2 03/31/16 15:30 97.2 80 17 123/62 95 03/31/16 11:38 97.3 88 17 139/57 93 03/31/16 08:00 97.4 81 17 127/70 96 03/31/16 07:20 Room Air 03/31/16 00:45 97.1 99 18 105/80 96 03/30/16 19:20 96.7 87 17 111/66 92 Physical Exam Alert awake and oriented x 3. No acute distress. Head: NC/AT Neck: No pain with any range of motion and neck. No tenderness to palpation along posterior cervical elements. Negative Spurling. Pulmonary: Normal respiratory effort. Bilateral upper extremity: at Baseline motor and sensation. Grossly nvi. No deformities. 2+ radial artery pulses. Good cap refill. RIGHT lower extremity: mild recurvatum deformity at the knee, equinus contracture, hyperesthesia on the proximal thigh, + PT/DP pulses. Supple compartments. Negative Homans sign. Laboratory Date/Time Procedure Status Source Growth 03/29/16 15:43 Urine Culture - Final Complete Urine Clean Catch Klebsiella Oxytoca Result Diagram: 03/30/1648 03/30/16 0548 Imaging Last 72 hours Impressions Tibia/Fibula X-Ray 03/30/16 0000 Signed Impressions: Service Date/Time: Wednesday, March 30, 2016 14:08 - CONCLUSION: Proximal and distal tibia fractures as well as distal fibular fracture again seen. There is anterior angulation of the distal tibia fracture fragment now seen. Haresh Gonzalez MD Chest X-Ray 03/29/16 1433 Signed Impressions: Service Date/Time: Tuesday, March 29, 2016 14:40 - CONCLUSION: No evidence of acute cardiopulmonary disease. Dexter Worley MD Abdomen/Pelvis CT 03/29/16 1433 Signed Impressions: Service Date/Time: Tuesday, March 29, 2016 16:49 - CONCLUSION: 1. 12.5 cm uterus characteristic of a fibroid uterus with some entrapped endometrial fluid. 2. Diffuse fatty infiltration of the liver. 3. Otherwise no acute findings within the abdomen or pelvis. Mild anasarca. Previous right hip replacement. Coronary calcifications. Fitz Melvin MD Assessment & Plan Assessment and Plan 55-year-old female with history of spina bifida who is wheelchair-bound, previous fall with hip repair, CMT, neuropathy. She reported a fall 4 weeks ago , while transferring to her wheelchair but didn't seek medical treatment until 4 days ago. She presented to ED where x-rays examination revealed a fracture of the right proximal and distal tibia. She is non-ambulatory and there is significant disuse osteopenia of the right lower extremity bony anatomy. I recommend nonoperative treatment in a long leg cast. Her fractures will likely take 3 months total to heal. NWB RLE. All questions were answered. Follow-up 2 weeks outpatient. Thanks for the consult, thanks for allowing me to participate in this patient's medical care. Sy Martinez Jr., MD Mar 31, 2016 18:02
[2016-03-31 20:06] VITALS: BP 148/70; PULSE 104; RESP 18; TEMP 96.6; O2SAT 96
[2016-04-01 00:05] VITALS: BP 119/73; PULSE 101; RESP 19; TEMP 96.1; O2SAT 94
[2016-04-01] MEDS: ACETAMINOPHEN/HYDROcodone 325 MG/7.5 MG TAB PO PRN ×2 (01:05→09:39)
[2016-04-01] MEDS: HYDROCORTISONE 2.5% CR (ANUSOL HC) 30 GM TUBE SCH (02:42)
[2016-04-01] MEDS: HYDROmorphone HCL PF 1 MG/ML VIAL IV PUSH PRN ×2 (02:59→07:25)
[2016-04-01 04:06] VITALS: BP 126/76; PULSE 105; RESP 19; TEMP 96.4; O2SAT 96
[2016-04-01] MEDS: PIPERACIL-TAZO 3.375 GM PREMIX 50 ML IV SCH ×2 (06:00)
[2016-04-01 06:01] LABS: HEMATOCRIT 34.3 % (35.0-46.0); MEAN CORPUSCULAR HEMOGLOBIN 34.9 PG (27.0-34.0); MEAN CORPUSCULAR HGB CONC 33.2 % (32.0-36.0); PLATELET COUNT 187 TH/MM3 (150-450); RED BLOOD COUNT 3.27 MIL/MM3 (4.00-5.30); RED CELL DISTRIBUTION WIDTH 15.9 % (11.6-17.2); REVIEW FLAG FINAL; WHITE BLOOD COUNT 9.3 TH/MM3 (4.0-11.0)
[2016-04-01 06:30] LABS: BICARBONATE 26.8 MEQ/L (21.0-32.0); POTASSIUM 3.3 MEQ/L (3.5-5.1)
[2016-04-01 08:06] VITALS: BP 144/80; PULSE 100; RESP 16; TEMP 98.1; O2SAT 97
[2016-04-01] MEDS: HEPARIN SODIUM - SQ 10,000 UNITS/ML VIAL SQ SCH (09:30)
[2016-04-01] MEDS: CLOPIDOGREL 75 MG TAB PO SCH (09:30)
[2016-04-01] MEDS: CARVEDILOL 3.125 MG TAB PO SCH (09:30)
[2016-04-01] MEDS: POTASSIUM CHLORIDE 10 MEQ CAP PO SCH (09:30)
[2016-04-01] MEDS: ASPIRIN 81 MG CHEW TAB CHEW SCH (09:30)
[2016-04-01] MEDS: FAMOTIDINE 20 MG TAB PO SCH (09:30)
[2016-04-01] MEDS: BACLOFEN 20 MG TAB PO SCH ×2 (09:39→14:44)
[2016-04-01] MEDS: NICOTINE 7 MG/24 HR PATCH TD SCH (09:39)
[2016-04-01] MEDS: NYSTATIN 100,000 U/GM OINT 15 GM TUBE TOPICAL SCH (09:39)
[2016-04-01] MEDS: SODIUM CHLORIDE 0.9% FLUSH 5 ML FLUSH FLUSH SCH (09:44)
[2016-04-01 10:08] VITALS: BP 140/86; PULSE 94; RESP 16; TEMP 98.2; O2SAT 98
[2016-04-01] MEDS ORDERED: POTASSIUM CL 40 MEQ/30 ML LIQ UDC PO ONE (11:45)
--- NOTE | 2016-04-01 11:51 | HHI.PR ---
Subjective Subjective Remarks nausea and vomiting still off and on. Increased pain right leg No shortness of breath No Chest pain Alert, anxiety noted (Halina Mccracken) Review of Systems Constitutional Constitutional: Fatigue, Weakness (generalized) Constitutional Remarks 10 point ROS done. Positives include right leg pain, nausea still off and on, anxiety. Constipation mild, no BM 2 days Other systems negative or unremarkable (Halina Mccracken) Pulmonary Respiratory: Coughing (mild occasional) (Halina Mccracken) GI/Abdomen GI/Abdominal Exam: Nausea (constant, acute on chronic), Constipation (no BM 2 days) (Halina Mccracken) Genitourinary Remarks Dong orange clear urine (Halina Mccracken) Musculoskeletal MS: Weakness, Stiffness, Swelling (right leg, supported with brace) MS Remarks Right leg wrapped in secured with Rob bandage. Nonweightbearing. Bed rest for now (Halina Mccracken) Psychiatric Psychiatric: Anxiety, Depression (states she gets depressed times) (Halina Mccracken) Vitals/Results Intake & Output 03/31/16 03/31/16 04/01/16 15:00 23:00 07:00 Intake Total 2322 ml 720 ml 720 ml Output Total 1750 ml 1450 ml 2225 ml Balance 572 ml -730 ml -1505 ml Intake Oral 1200 ml 720 ml 720 ml IV Total 1122 ml Output Urine Total 1750 ml 1450 ml 2225 ml # Voids 0 # Bowel Movements 0 0 0 Vital Signs Vital Signs Date Time Temp Pulse Resp B/P Pulse Ox O2 Delivery O2 Flow Rate FiO2 04/01/16 08:06 98.1 100 16 144/80 97 04/01/16 07:40 Room Air 04/01/16 04:06 96.4 105 19 126/76 96 04/01/16 00:05 96.1 101 19 119/73 94 03/31/16 20:06 96.6 104 18 148/70 96 03/31/16 15:30 97.2 80 17 123/62 95 (Halina Mccracken) CBC/BMP: 04/01/16 0527 04/01/16 0527 Lab Results Laboratory Tests Test 04/01/16 05:27 White Blood Count 9.3 TH/MM3 Red Blood Count 3.27 MIL/MM3 Hemoglobin 11.4 GM/DL Hematocrit 34.3 % Mean Corpuscular Volume 105.0 FL Mean Corpuscular Hemoglobin 34.9 PG Mean Corpuscular Hemoglobin 33.2 % Concent Red Cell Distribution Width 15.9 % Platelet Count 187 TH/MM3 Mean Platelet Volume 7.8 FL Sodium Level 137 MEQ/L Potassium Level 3.3 MEQ/L Chloride Level 102 MEQ/L Carbon Dioxide Level 26.8 MEQ/L Anion Gap 8 MEQ/L Blood Urea Nitrogen 2 MG/DL Creatinine 0.37 MG/DL Estimat Glomerular Filtration 180 ML/MIN Rate Random Glucose 109 MG/DL Calcium Level 8.2 MG/DL Imaging Remarks Last Impressions Tibia/Fibula X-Ray 03/30/16 0000 Signed Impressions: Service Date/Time: Wednesday, March 30, 2016 14:08 - CONCLUSION: Proximal and distal tibia fractures as well as distal fibular fracture again seen. There is anterior angulation of the distal tibia fracture fragment now seen. Haresh Gonzalez MD Chest X-Ray 03/29/16 1433 Signed Impressions: Service Date/Time: Tuesday, March 29, 2016 14:40 - CONCLUSION: No evidence of acute cardiopulmonary disease. Dexter Worley MD Abdomen/Pelvis CT 03/29/163 Signed Impressions: Service Date/Time: Tuesday, March 29, 2016 16:49 - CONCLUSION: 1. 12.5 cm uterus characteristic of a fibroid uterus with some entrapped endometrial fluid. 2. Diffuse fatty infiltration of the liver. 3. Otherwise no acute findings within the abdomen or pelvis. Mild anasarca. Previous right hip replacement. Coronary calcifications. Fitz Melvin MD Current Medications Active Medications Potassium Chloride (KCl 40 Meq/30 ml Liq) 40 meq ONCE ONCE PO; Start 04/01/16 at 11:45; Stop 04/01/16 at 11:46; Status UNV (Halina Mccracken) Physical Exam General General Appearance: Well Developed, Well Nourished, Anxious, Obese (Halina Mccracken) Eyes Eye Exam: Pupils Equal, Pupils Reactive, Sclera White (Halina Mccracken) Ears & Nose Ears & Nose Exam: Nasal Mucosa Holliday ([place],Halina M. [employer]) Throat Throat Exam: Oral Mucosa Holliday & Moist ([place],Halina M. [employer]) Neck Neck Exam: Neck Supple, Trachea Midline ([place],Halina M[employer]) Pulmonary Resp Exam: Breath Sounds Equal, Diminished Breath Sounds, Poor Inspiratory Effort (low volumes) Resp Remarks Mild expiratory wheeze anterior, occasional cough Long-term smoker (Mari Mccrackenan M. [employer]) Cardiology CV Exam: Regular (Kay[place],Susan M[employer]) Gastrointestinal/Abdomen GI Exam: Soft (obese), Non-Tender, Bowel Sounds Present (Kaykay,Halina M[employer]) Genitourinary Remarks Yellow urine, Dong catheter (Kay[place],Halina M[employer]) Musculoskeletal MS Exam: Unable to Ambulate MS Remarks Wheelchair-bound 3-4 years Full leg brace right leg secured with Rob bandage. Dressing clean dry and intact ([place],Susan M[employer]) Integumentary Skin Exam: Clear, Warm, Dry, Normal Turgor (KaykayMariHalina M. [employer]) Extremeties Extremities Exam: Trace Edema Extremeties Remarks Right lower leg ([place],Halina M[employer]) Neurologic Neuro Exam: Alert, Awake, Oriented, Speech Clear ([place],Halina M[employer]) Psychiatric Psych Remarks Anxiety mild over current condition ([place] HillHalina M. [employer]) VTE Prophylaxis VTE Prophylaxis Device: SCDs VTE Prophylaxis Meds: Heparin VTE Remarks ASA (KaykayHalina M. [employer]) PUD Prophylasis PUD Remarks Pepcid ([place] HillHalina M. [employer]) Assessment/Plan Assessment/Plan Sepsis, secondary to urinary tract infection Continue with empiric antibiotics Continue with IV fluids Lactic acid decreasing this a.m.. monitor Fungal rash, medical management Nystatin ointment to be applied, resolving rt. and lt buttock areas, reddened, nonbroken. WOCN evaled, Leave open to air and dry possible. Barrier cream applied daily. Recent right proximal and distal tib-fib fracture -Continue with splint orthopedic consultation , currently not a surgical candidate. We'll place hard cast on, Could take approximately 3 months to heal. Patient looking at rehabilitation SNF Discharge after hard cast applied and patient is stable from her labs. -Physical therapy for evaluation -Pain management Appetite fair, but has bouts of nausea and vomiting last p.m. and this a.m. Will evaluate medicines, medical management. Patient has had previous scans which showed no delay in her food Spina bifida, medical management Continue with baclofen Hypertension Continue with home medication Tobacco abuse nicotine patch History of CMT Hypokalemia, added 40 mEq potassium dose today. Check BMP in the a.m. Case management consultation for rehabilitation placement. Pamphlets in room Pepcid for GI prophylaxis Heparin for DVT prophylaxis Pain management, complaints of unresolved constant pain in right leg. Discussed options with Dr. Sewell. She has had Percocet with her previous fracture which worked well. (Halina Mccracken) Assessment/Plan Patient seen and examined needs a soft splint ( no cast) as recommended by ortho. no shower, keep it dry follow up outpatient with Dr Martinez in 2 weeks Ok to d/[facility] to [facility]/c dong switch pain meds to Percocet d/c zosyn urine with klebsiella Oxytoca, switch to po cipro ok to d/c to SNF/rehab discussed with patient discussed with nursing staff discussed with Halina MARTÍNEZ (Padma Sewell MD) Halina Mccracken Apr 01, 2016 11:51 Padma Sewell MD Apr 01, 2016 14:50
[2016-04-01] MEDS ORDERED: oxyCODONE/ACETAMINOPHEN 5 MG/325 MG TAB PO PRN (14:45)
[2016-04-01] MEDS ORDERED: CIPR-9 PO (14:57)
[2016-04-01] MEDS ORDERED: OXYC1TAB36 PO (14:57)
[2016-04-01] MEDS ORDERED: BACL20TA PO (14:57)
[2016-04-01 15:35] VITALS: BP 124/86; PULSE 101; RESP 18; TEMP 96.1; O2SAT 96
[2016-04-01] MEDS ORDERED: CIPROFLOXACIN 500 MG TAB PO SCH (16:00)
--- NOTE | 2016-04-01 18:20 | HHI.DS ---
Discharge Summary Admission Date Mar 29, 2016 at 17:56 Discharge Date: Apr 01, 2016 Admitting Diagnosis fall, fractures tib/fib rt leg (1) Sepsis Diagnosis: Principal (2) UTI (urinary tract infection) Diagnosis: Principal (3) Spina bifida Diagnosis: Secondary (4) Fracture of right tibia and fibula Diagnosis: Principal (5) Intertriginous candidiasis Diagnosis: Principal (6) Hx of fall Diagnosis: Secondary (7) Tobacco abuse Diagnosis: Secondary (8) CMT (Qhrsfrp-Enolq-Plshg disease) Diagnosis: Secondary Brief History This was an unfortunate 55-year-old female with history of spina bifida who was wheelchair-bound, previous fall with hip repair, CMT, neuropathy. According to the patient approximately 1 month ago she fell while she had been held transferring from her wheelchair. She didn't present to the hospital until 2 days ago on March 27. She was found with a right proximal distal tibia and fibula fracture. Orthopedic surgeon was called from the emergency room and indicated that this was a nonoperative fracture and was placed in a splint and instructed to follow up as outpatient. She was discharge home from the emergency room with home health care and Percocet. According to the patient , she was only able to transfer by hanging onto her boyfriend's neck to the toilet in the shower. She has been in extreme pain has not been able to be moved around. Home healthcare showed up today she was found laying in urine. Patient states that she hasn't been eating very much. Her boyfriend has some type of visual impairment and not one point she was actually taking care of him. Indicates she hasn't had a bowel movement in approximately one week. She' s been passing gas, feels her abdomen was distended. Denies any fever, no chills. CBC/BMP: 04/01/16 0527 04/01/16 0527 Significant Findings Laboratory Tests Test 03/30/16 04/01/16 05:48 05:27 Red Blood Count 3.22 MIL/MM3 3.27 MIL/MM3 (4.00-5.30) (4.00-5.30) Hemoglobin 11.3 GM/DL 11.4 GM/DL (11.6-15.3) (11.6-15.3) Hematocrit 33.3 % 34.3 % (35.0-46.0) (35.0-46.0) Mean Corpuscular Volume 103.6 FL 105.0 FL (80.0-100.0) (80.0-100.0) Mean Corpuscular Hemoglobin 35.0 PG 34.9 PG (27.0-34.0) (27.0-34.0) Neutrophils (%) (Auto) 72.0 % (16.0-70.0) Monocytes (%) (Auto) 9.9 % (0.0-8.0) Blood Urea Nitrogen 4 MG/DL (7-18) 2 MG/DL (7-18) Creatinine 0.44 MG/DL 0.37 MG/DL (0.50-1.00) (0.50-1.00) Calcium Level 7.2 MG/DL 8.2 MG/DL (8.5-10.1) (8.5-10.1) Protein Corrected Calcium 8.2 MG/DL (8.5-10.1) Total Protein 5.3 GM/DL (6.4-8.2) Potassium Level 3.3 MEQ/L (3.5-5.1) Random Glucose 109 MG/DL (74-106) Imaging Last Impressions Tibia/Fibula X-Ray 03/30/16 0000 Signed Impressions: Service Date/Time: Wednesday, March 30, 2016 14:08 - CONCLUSION: Proximal and distal tibia fractures as well as distal fibular fracture again seen. There is anterior angulation of the distal tibia fracture fragment now seen. Haresh Gonzalez MD Chest X-Ray 03/29/16 1433 Signed Impressions: Service Date/Time: Tuesday, March 29, 2016 14:40 - CONCLUSION: No evidence of acute cardiopulmonary disease. Dexter Worley MD Abdomen/Pelvis CT 03/29/16 1433 Signed Impressions: Service Date/Time: Tuesday, March 29, 2016 16:49 - CONCLUSION: 1. 12.5 cm uterus characteristic of a fibroid uterus with some entrapped endometrial fluid. 2. Diffuse fatty infiltration of the liver. 3. Otherwise no acute findings within the abdomen or pelvis. Mild anasarca. Previous right hip replacement. Coronary calcifications. Fitz Melvin MD PE at Discharge General Appearance: Well Developed, Well Nourished, Anxious, Obese Eye Exam: Pupils Equal, Pupils Reactive, Sclera White Ears & Nose Exam: Nasal Mucosa Barclay Throat Exam: Oral Mucosa [place]clay & Moist Neck Exam: Neck Supple, Trachea Midline Resp Exam: Breath Sounds Equal, Diminished Breath Sounds, Poor Inspiratory Effort (low volumes) Resp Remarks Mild expiratory wheeze anterior, occasional cough Long-term smoker CV Exam: Regular GI Exam: Soft (obese), Non-Tender, Bowel Sounds Present Remarks Yellow urine, Gonzales catheter MS Exam: Unable to Ambulate MS Remarks Wheelchair-bound 3-4 years Full leg brace right leg secured with Rob bandage. Dressing clean dry and intact Skin Exam: Clear, Warm, Dry, Normal Turgor Extremities Exam: Trace Edema Extremeties Remarks Right lower leg Neuro Exam: Alert, Awake, Oriented, Speech Clear Psych Remarks Anxiety mild over current condition VTE Prophylaxis Device: SCDs VTE Prophylaxis Meds: Heparin VTE Remarks ASA PUD Remarks Pepcid Hospital Course Patient was evaluated in the emergency room, was noted tachycardic, pulse rate 112, temperature 98.4, blood pressure 137/84, sats 94%. No WBC elevation. BMP was essentially unremarkable other than mild hyponatremia. Alkaline phosphatase was elevated 163. Lactic acid was 3.2. Was noted with UTI, positive for large leukocyte esterase, WBC, bacteria. 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 Chest x-ray with no acute findings. Cultures were obtained, she was fluid resuscitated. Empiric antibiotics were started. She was given narcotics. At this time she was complaining of increasing pain and having spasms. She was very anxious, very tearful about being rehospitalized. Indicates that she cannot take care of herself and was agreeable with going to rehabilitation facility. Patient was admitted for further evaluation and treatment Diagnosis listed at the top of the page were used to treat patient and her plan of care during this hospital stay. His included sepsis, UTI, spina bifida, fracture of right tibia and fibula, Linda, fall, tobacco abuse, and CMT. Sepsis, secondary to urinary tract infection Continue with empiric antibiotics Continue with IV fluids Lactic acid decreasing this a.m.. monitor for any increase or increase in WBC count or temp Fungal rash, medical management Nystatin ointment to be applied, resolving rt. and lt buttock areas, reddened, nonbroken. WOCN evaled, Leave open to air and dry possible. Barrier cream applied daily. No acute other issues were found Recent right proximal and distal tib-fib fracture -Continue with splint orthopedic consultation , currently not a surgical candidate. Could take approximately 3 months to heal, and patient is non-weightbearing Patient looking at rehabilitation SNF -Physical therapy for evaluation. Educated and assisted in mobility -Pain management . Change to Percocet on day of discharge. [place] ineffective. Appetite fair, but has bouts of nausea and vomiting last p.m. and this a.m. Will evaluate medicines, medical management . Patient has had previous scans which showed no delay in her food Spina bifida, medical management Continue with baclofen Hypertension Continue with home medication Tobacco abuse, chronic Placed on nicotine patch History of CMT, medical management Hypokalemia, added 40 mEq potassium dose today. Case management consultation for rehabilitation placement. Pamphlets in room Pepcid for GI prophylaxis Heparin for DVT prophylaxis Pain management, complaints of unresolved constant pain in right leg. Or throat approved patient's discharge to SNF for rehabilitation. Dates he will follow-up with her in his office in a few weeks. She to be maintained in soft cast for now. Not a surgical candidate. Discussed options with Dr. Sewell. She has had Percocet with her previous fracture which worked well. (Halina Mccracken) Assessment/Plan Patient seen and examined needs a soft splint ( no cast) as recommended by ortho. no shower, keep it dry follow up outpatient with Dr Martinez in 2 weeks Ok to d/c to cannon balls d/c iker switch pain meds to Percocet d/c zosyn urine with klebsiella Oxytoca, switch to po cipro ok to d/c to SNF/rehab discussed with patient discussed with nursing staff discussed with Halina MARTÍNEZ Pt Condition on Discharge: Stable Discharge Disposition: Discharge to SNF Discharge Instructions DIET: Follow Instructions for: Heart Healthy Diet Activities you can perform: See Additionl Instruction Other Activity Instructions: NWB RLE no shower keep soft splint on at all times Follow up Referrals: Orthopedics - 2 Weeks with Sy Martinez Jr., MD New Medications: Ciprofloxacin (Cipro) 500 Mg Tab 500 MG PO Q12H uti #14 TAB Continued Medications: Aspirin (Aspirin) 81 Mg Chew 81 MG CHEW DAILY Ref 0 TAB Baclofen (Baclofen) 20 Mg Tab 20 MG PO TID Muscle Spasm Days 10 Ref 0 TAB (This prescription has been renewed) Carvedilol (Carvedilol) 3.125 Mg Tab 3.125 MG PO BID #60 Ref 0 TAB Clopidogrel (Clopidogrel) 75 Mg Tab 75 MG PO DAILY Blood Clot Prevention #30 Ref 0 TAB Oxycodone-Acetaminophen (Oxycodone-Acetaminophen) 10-325 mg Tab 1 TAB PO Q6H PRN PAIN Days 7 Ref 0 TAB (This prescription has been renewed) Potassium Chloride ER (Potassium Chloride ER) 10 Meq Cap 10 MEQ PO DAILY Electrolyte Replacement #30 Ref 0 CAP Pravastatin (Pravastatin) 10 Mg Tab 10 MG PO DAILY Cholesterol Management #30 Ref 0 TAB Ranitidine (Ranitidine) 300 Mg Tab 300 MG PO DAILY Heartburn Management #30 Ref 0 TAB Halina Mccracken Apr 01, 2016 18:20
== END 2016-04-01 16:27 | DRG 872 ==
LOC: NEPE 13:58 → NEDA 17:56 → N06B 19:58
PROVIDERS: ADMIT Specialist; ATTEND Specialist
DX: A41.9 Sepsis, unspecified organism (principal); L89.151 Pressure ulcer of sacral region, stage 1; E87.2 Acidosis; K76.0 Fatty (change of) liver, not elsewhere classified; E87.1 Hypo-osmolality and hyponatremia; E86.0 Dehydration; N39.0 Urinary tract infection, site not specified; S82.101A Unspecified fracture of upper end of right tibia, initial encounter for closed fracture; G62.9 Polyneuropathy, unspecified; I10 Essential (primary) hypertension; Q05.9 Spina bifida, unspecified; Z99.3 Dependence on wheelchair; M85.80 Other specified disorders of bone density and structure, unspecified site; E87.6 Hypokalemia; D25.9 Leiomyoma of uterus, unspecified; G60.0 Hereditary motor and sensory neuropathy; S82.401A Unspecified fracture of shaft of right fibula, initial encounter for closed fracture; S82.301A Unspecified fracture of lower end of right tibia, initial encounter for closed fracture; W05.0XXA Fall from non-moving wheelchair, initial encounter; Y92.009 Unspecified place in unspecified non-institutional (private) residence as the place of occurrence of the external cause; Z96.641 Presence of right artificial hip joint; F17.210 Nicotine dependence, cigarettes, uncomplicated; R00.0 Tachycardia, unspecified
CPT/HCPCS: 29505; 71010; 73552; 73590; 73620; 74177; 80048; 80053; 81001; 82550; 83605; 83690; 84155; 84484; 85025; 85027; 85610; 85730; 87077; 87086; 87186; 93005; 94640; 94664; 96361; 96365; 96374; 96375; 96376; J0696; J1170; J1644; J2270; J2405; J2543; J3370; J7030; J7040; J7050; Q9967